=== PATIENT | female | born 1960 | race Caucasian/White ===

== ENCOUNTER 2016-07-10 17:14 | Inpatient (IN) | payer BC, OTHER ==
[~2016-07-10] VITALS: Ht 167.6 cm; Wt 84.0 kg
[~2016-07-10 17:14] MED LIST: ASPI-999 PO; CIPR500T4 PO; FAMO-119 PO; KETO10TA PO; LISI10TA2 PO; MONT10TA24 PO; NITR-65 PO; OMEG500C3 PO; ONDA8TAB13 PO; OXYC-471 PO; PHEN-640 PO; PRAV40TA2 PO; PRD20T PO; SIMV40TA4 PO; TAMS0.4C98 PO
[2016-07-10] MEDS ORDERED: morphine INJ 10 MG/ML 1ML (SYR OR VIAL) IVP STA (17:29)
[2016-07-10] MEDS ORDERED: VANCOMYCIN INJECTION 1,000 MG in NS (IVPB) 250 ML IV ONE (17:30)
[2016-07-10] MEDS ORDERED: KETOROLAC 30 MG/ML VIAL IVP STA (17:38)
[2016-07-10] MEDS ORDERED: ONDANSETRON 4 MG/2 ML (SDV) Z0FRAN IVP ONE (17:45)
[2016-07-10] MEDS ORDERED: NS IV 1000 ML 2,500 ML IV PRN (17:45)
[2016-07-10 17:46] LABS: BASOPHILS # (AUTO) 0.1 10^3/uL (0.0-0.1); BASOPHILS % (AUTO) 1 % (0-10); EOSINOPHILS # (AUTO) 0.1 10^3/uL (0.0-0.3); EOSINOPHILS % (AUTO) 1 % (0-10); LYMPHOCYTES # (AUTO) 1.3 X 10^3 (1.0-4.0); LYMPHOCYTES % (AUTO) 12 % (12-44); MEAN CORPUSCULAR HEMOGLOBIN 31 PG (25-34); MEAN CORPUSCULAR HGB CONC 34 G/DL (32-36); MEAN CORPUSCULAR VOLUME 91 FL (80-99); MEAN PLATELET VOLUME 10.3 FL (7.4-10.4); MONOCYTES # (AUTO) 1.1 X 10^3 (0.0-1.0); MONOCYTES % (AUTO) 10 % (0-12); NEUTROPHILS # (AUTO) 8.5 X 10^3 (1.8-7.8); NEUTROPHILS % (AUTO) 77 % (42-75); PLATELET COUNT 225 10^3/uL (130-400); RED BLOOD COUNT 4.02 10^6/uL (4.35-5.85); RED CELL DISTRIBUTION WIDTH 12.5 % (10.0-14.5)
[2016-07-10 17:59] LABS: INR 1.1 (0.8-1.4); PROTHROMBIN TIME PATIENT 13.4 SEC (12.2-14.7)
[2016-07-10 18:16] LABS: ALBUMIN 3.9 G/DL (3.2-4.5); BILIRUBIN,TOTAL 0.9 MG/DL (0.1-1.0); CALCIUM 9.2 MG/DL (8.5-10.1); CREATININE SERUM 0.97 MG/DL (0.60-1.30); POTASSIUM 3.6 MMOL/L (3.6-5.0)
--- NOTE | 2016-07-10 18:25 | Diagnostic Imaging Report ---
CLINICAL INDICATION: Patient denies any chest pain but has fevers. EXAM: Portable chest x-ray upright view. COMPARISONS: Chest x-ray dated 07/10/2015. FINDINGS: Lungs/pleura: Lungs are clear. There is no pneumothorax. There is no pleural effusion. Mediastinum: Unremarkable. Pulmonary vasculature: Unremarkable. Heart: Unremarkable. Bones/extrathoracic soft tissue: Unremarkable. IMPRESSION: There is no radiographic evidence of acute cardiopulmonary process. Dictated by: Dictated on workstation # [id number]
[2016-07-10] MEDS ORDERED: LIDOCAINE 2% 20 ML (XYLOCAINE) VIAL INJ ONE (18:45)
--- NOTE | 2016-07-10 18:56 | Diagnostic Imaging Report ---
Clinical indication: Patient complains of left knee pain and swelling. Onset Tuesday. No history of trauma or injury. Patient was given medicine for gout but states it is not helping and has since developed a fever. Exam: X-ray of the left knee, 3 views. Comparison: None. Findings: There is no evidence of acute fracture or dislocation. There is suspected moderate left knee effusion. There is a 4 mm calcification posterior to the left knee which may represent a loose body. There is a moderately hypertrophic patellar spur at the quadriceps attachment. There is mild to moderate spurring involving the patellofemoral compartment. Impression: 1: Moderate left knee effusion. 2: Evaluation for gout or other infectious or inflammatory process is suggested. 3: Degenerative disease of the left knee predominantly involving the patellofemoral compartment. 4: Possible small loose body seen posterior to the knee. Dictated by: Dictated on workstation # [id number]
[2016-07-10 20:07] LABS: BILIRUBIN,URINE NEGATIVE (NEGATIVE); KETONES,URINE NEGATIVE (NEGATIVE); LEUKOCYTE ESTERASE ,URINE 1+ (NEGATIVE); NITRITE,URINE NEGATIVE (NEGATIVE); PH,URINE 6 (5-9); PROTEIN,URINE NEGATIVE (NEGATIVE); UROBILINOGEN,URINE NORMAL (NORMAL)
[2016-07-10 20:24] LABS: WBC,URINE 0-2 /HPF
--- NOTE | 2016-07-10 20:51 | ED General ---
General Chief Complaint: Fever-Adult/Adol Stated Complaint: L KNEE PAIN Nursing Triage Note: PT REPORTS L KNEE PAIN AND SWELLING SINCE . PT WAS GIVEN MEDICATION FOR GOUT, BUT HAS NOT HAD IMPROVEMENT AND HAS SINCE DEVELOPED FEVER AND MALAISE. Nursing Sepsis Screen: No Definite Risk Source of Information: Patient, Spouse Exam Limitations: No Limitations History of Present Illness Time Seen by Provider: 17:20 Initial Comments 55 yo female patient presents to the ED with c/o left knee pain and swelling with onset last Tuesday. Patient was given colchicine yesterday w/o improvement in symptoms. Also reports using naprosyn w/o improvement. Patient denies fever, nausea, vomiting. Reports generalized malaise today. Denies a h/ o gout. upon admit to the ED patient was noted to have a temp of 103 degrees[address] Injury Occurred: denies known injury Timing/Duration: 2-3 Days, Getting Worse Severity: Severe Modifying Factors: improves with Immobilization, worse with Medication, worse with Movement Allergies and Home Medications Allergies Coded Allergies: red dye (Unverified Allergy, Unknown, hives, 02/19/15) RED DYE #40 Home Medications Aspirin 81 Mg Tab.chew, 81 MG PO DAILY@0900, #30 Prescribed by: YESSY BELL on 07/11/15 0854 Famotidine 20 Mg Tablet, 20 MG PO DAILY, #30 Prescribed by: YESSY BELL on 07/11/15 0909 Lisinopril 10 Mg Tablet, 10 MG PO DAILY, #30 Prescribed by: YESSY BELL on 07/11/15 0854 Montelukast Sodium 10 Mg Tablet, 10 MG PO DAILY PRN for ALLERGIES, (Reported) [place]-3 Fatty Acids 500 Mg Capsule, 500 MG PO BID, #100 Ref 1 Prescribed by: ISADORA REBOLLAR on 07/11/15 0943 Pravastatin Sodium 40 Mg Tablet, 40 MG PO DAILY, #30 Prescribed by: YESSY BELL on 07/11/15 0909 Constitutional: see HPI, chills, fever, malaise EENTM: no symptoms reported Respiratory: No cough, No short of breath Cardiovascular: No chest pain, No palpitations, No syncope Gastrointestinal: No abdominal pain, No diarrhea, No nausea, No vomiting Genitourinary: no symptoms reported Musculoskeletal: see HPI, joint pain, joint swelling Skin: see HPI, change in color Psychiatric/Neurological: No Symptoms Reported All Other Systems Reviewed Negative Unless Noted: Yes (Negative excepted noted.) Past Mvxdufv-Oeizkt-Wobofv Hx Patient Social History Alcohol Use: Denies Use Recreational Drug Use: No Smoking Status: Never a Smoker 2nd Hand Smoke Exposure: No Recent Foreign Travel: No Contact w/Someone Who Travel: No Recent Infectious Disease Expo: No Recent Hopitalizations: No Immunizations Up To Date Tetanus Booster (TDap): Less than 5yrs PED Vaccines UTD: No Date of Influenza Vaccine: July 10, 2015 Seasonal Allergies Seasonal Allergies: No Surgeries HX Surgeries: Yes Surgeries: Hysterectomy Respiratory Hx Respiratory Disorders: No Cardiovascular Hx Cardiac Disorders: No Neurological Hx Neurological Disorders: No 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 System Hx 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 Disorders: No Sexually Transmitted Disease: No HIV/AIDS: No Female 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 Disorders: 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 Genitourinary Hx Genitourinary Disorders: Yes (FIRST KIDNEY STONE 02/19/15) Genitourinary Disorders: Kidney Stones Gastrointestinal Hx Gastrointestinal Disorders: No Musculoskeletal Hx Musculoskeletal Disorders: No Endocrine Hx Endocrine Disorders: No HEENT HX ENT Disorders: No Cancer Hx Cancer: No Psychosocial Hx Psychiatric Problems: No Integumentary HX Skin/Integumentary Disorder: Yes (ALOPECIA) Blood Transfusions Hx Blood Disorders: No Adverse Reaction to a Blood Tr: No Reviewed Nursing Assessment Reviewed/Agree w Nursing PMH: Yes Family Medical History Significant Family History: No Pertinent Family Hx Family Medial History: Patient reports no known family medical history. Physical Exam Vital Signs Vital Sign - Last 12Hours 07/10/16 07/10/16 17:20 19:13 Temp 103.0 Pulse 115 Resp 20 B/P (MAP) 123/63 Pulse Ox 96 O2 Delivery Room Air Capillary Refill : Less Than 3 Seconds General Appearance: No Apparent Distress, WD/WN HEENT: PERRL/EOMI, Pharynx Normal Neck: Normal Inspection, Supple Respiratory: Lungs Clear, Normal Breath Sounds, No Respiratory Distress Cardiovascular: Regular Rate, Rhythm, No Edema, No Murmur, Normal Peripheral Pulses Gastrointestinal: Normal Bowel Sounds, Non Tender, Soft, No Distended Back: Normal Inspection Extremity: Normal Capillary Refill, No Calf Tenderness, No Pedal Edema, Other ( left knee shows erythema, warmth, generalized tenderness, and swelling. Left knee ROM 0 degrees to 35 degrees flexion. Moderate to severe pain with passive and active ROM.) Neurologic/Psychiatric: Alert, Oriented x3, No Motor/Sensory Deficits, Normal Mood/Affect Skin: Normal Color, Warm/Dry, Other (left knee shows erythema, warmth, generalized tenderness, and swelling.) Focused Exam Lactic Acid Level Additional Procedures : Additional Procedures: Arthrocentesis Aspirating Progress 1:1 mixture of 2% lidocaine and 0.5% marcaine used to anesthetize the medial border of the left patella. A 16 g needle was used to aspirate 12 cc of bloody synovial fluid. synovial fluid sent to the lab for testing. Blood loss minimal. Patient tolerated the procedure well. Progress/Results/Core Measures Results/Orders Lab Results Laboratory Tests Test 07/10/16 17:35 07/10/16 19:05 07/10/16 19:59 Range/Units White Blood Count 11.0 4.3-11.0 10^3/uL Red Blood Count 4.02 L 4.35-5.85 10^6/uL Hemoglobin 12.5 11.5-16.0 G/DL Hematocrit 37 35-52 % Mean Corpuscular Volume 91 80-99 FL Mean Corpuscular Hemoglobin 31 25-34 PG Mean Corpuscular Hemoglobin Concent 34 32-36 G/DL Red Cell Distribution Width 12.5 10.0-14.5 % Platelet Count 225 130-400 10^3/uL Mean Platelet Volume 10.3 7.4-10.4 FL Neutrophils (%) (Auto) 77 H 42-75 % Lymphocytes (%) (Auto) 12 12-44 % Monocytes (%) (Auto) 10 0-12 % Eosinophils (%) (Auto) 1 0-10 % Basophils (%) (Auto) 1 0-10 % Neutrophils # (Auto) 8.5 H 1.8-7.8 X 10^3 Lymphocytes # (Auto) 1.3 1.0-4.0 X 10^3 Monocytes # (Auto) 1.1 H 0.0-1.0 X 10^3 Eosinophils # (Auto) 0.1 0.0-0.3 10^3/uL Basophils # (Auto) 0.1 0.0-0.1 10^3/uL Erythrocyte Sedimentation Rate 66 H 0-30 MM/HR Prothrombin Time 13.4 12.2-14.7 SEC INR Comment 1.1 0.8-1.4 Activated Partial Thromboplast Time 32 24-35 SEC Sodium Level 141 135-145 MMOL/L Potassium Level 3.6 3.6-5.0 MMOL/L Chloride Level 109 H 98-107 MMOL/L Carbon Dioxide Level 22 21-32 MMOL/L Anion Gap 10 5-14 MMOL/L Blood Urea Nitrogen 14 7-18 MG/DL Creatinine 0.97 0.60-1.30 MG/DL Estimat Glomerular Filtration Rate 60 BUN/Creatinine Ratio 14 Glucose Level 109 H 70-105 MG/DL Lactic Acid Level 0.70 0.50-2.00 MMOL/L Uric Acid 3.0 2.6-7.2 MG/DL Calcium Level 9.2 8.5-10.1 MG/DL Total Bilirubin 0.9 0.1-1.0 MG/DL Aspartate Amino Transf (AST/SGOT) 25 5-34 U/L Alanine Aminotransferase (ALT/SGPT) 28 0-55 U/L Alkaline Phosphatase 66 40-136 U/L C-Reactive Protein High Sensitivity 17.27 H 0.00-0.50 MG/DL Total Protein 7.0 6.4-8.2 G/DL Albumin 3.9 3.2-4.5 G/DL Body Fluid Source SYNOVIAL Body Fluid Color RED Body Fluid Appearance MKD BLDY Body Fluid WBC 3750 /uL Body Fluid RBC 93563 /uL Body Fluid Polynuclear WBCs 85 % Body Fluid Mononuclear WBCs 0 % Body Fluid Lymphocytes 15 % Body Fluid Other Cells 0 % Body Fluid Crystals NOT SEEN Urine Color YELLOW Urine Clarity CLEAR Urine pH 6 5-9 Urine Specific [place] 1.020 1.016-1.022 Urine Protein NEGATIVE NEGATIVE Urine Glucose (UA) NEGATIVE NEGATIVE Urine Ketones NEGATIVE NEGATIVE Urine Nitrite NEGATIVE NEGATIVE Urine Bilirubin NEGATIVE NEGATIVE Urine Urobilinogen NORMAL NORMAL MG/DL Urine Leukocyte Esterase 1+ H NEGATIVE Urine RBC (Auto) NEGATIVE NEGATIVE Urine RBC NONE /HPF Urine WBC 0-2 /HPF Urine Squamous Epithelial Cells 5-10 /HPF Urine Crystals NONE /LPF Urine Bacteria TRACE /HPF Urine Casts NONE /LPF Urine Mucus NEGATIVE /LPF Urine Culture Indicated NO My Orders Orders - CAROL ANN GOODSON Cbc With Automated Diff (07/10/16 17:29) Comprehensive Metabolic Panel (07/10/16 17:29) Lactic Acid Analyzer (07/10/16 17:29) Blood Culture (07/10/16:29) Sputum Culture (07/10/16 17:29) Ua Culture If Indicated (07/10/16:29) Protime With Inr (07/10/16:) Partial Thromboplastin Time (07/10/16:29) Chest 1 View, Ap/Pa Only (07/10/16:29) Saline Lock/Iv-Start (07/10/16:29) Saline Lock/Iv-Start (07/10/16:29) Ekg Tracing (07/10/16:) Vital Signs Adult Sepsis Patie Q1HR (07/10/16:29) Vancomycin Injection (Vancomycin Injecti (07/10/16 17:30) Remove Rings In Anticipation O (07/10/16:29) Morphine Injection (Morphine Injection (07/10/16 17:29) Ns Iv 1000 Ml (Sodium Chloride 0.9%) (07/10/16 17:45) Ketorolac Injection (Toradol Injection) (07/10/16 17:38) Ondansetron Injection (Zofran Injectio (07/10/16 17:45) Hs C Reactive Protein (07/10/16 17:47) Erythrocyte Sedimentation Rate (07/10/16 17:47) Knee, Left, 3 Views (07/10/16 18:20) Lidocaine 2% Injection 20 Ml (Xylocaine (07/10/16 18:45) Body Fluid Cell Count (07/10/16 19:17) Body Fluid Culture (07/10/16 19:17) Crystals,Body Fluid (07/10/16 19:17) Uric Acid (07/10/16 20:13) Medications Given in ED Current Medications Medications Dose Ordered Sig/Eusebio Route Start Time Stop Time Status Last Admin Dose Admin Lidocaine HCl 20 ml ONCE ONCE INJ 07/10/16 18:45 07/10/16 18:46 DC 07/10/16 18:56 5 ML Ondansetron HCl 4 mg ONCE ONCE IVP 07/10/16 17:45 07/10/16 17:46 DC 07/10/16 18:09 4 MG Sodium Chloride 2,500 ml @ 1,250 mls/hr PRN PRN IV 07/10/16 17:45 5/13/17 21:57 DC 07/10/16 18:10 1,250 MLS/HR Vancomycin HCl 1000 mg/Sodium Chloride 250 ml @ 250 mls/hr ONCE ONCE IV 07/10/16 17:30 07/10/16 18:29 DC 07/10/16 18:09 250 MLS/HR Vital Signs/I&O Vital Sign - Last 12Hours 07/10/16 07/10/16 07/10/16 07/10/16 17:20 19:13 21:36 22:00 Temp 103.0 100.4 100.4 97.2 Pulse 115 96 96 87 Resp 20 18 18 18 B/P (MAP) 123/63 137/72 Pulse Ox 96 96 96 96 O2 Delivery Room Air Room Air 07/11/16 00:00 Temp 97.7 Pulse 91 Resp 8 B/P (MAP) 110/58 Pulse Ox 95 Intake and Output 07/11/16 00:00 Intake Total 3250 ml Balance 3250 ml Blood Pressure Mean: 83 Diagnostic Imaging Diagonstic Imaging: Xray Plain Films/CT/US/NM/MRI: chest Comments FINDINGS: Lungs/pleura: Lungs are clear. There is no pneumothorax. There is no pleural effusion. Mediastinum: Unremarkable. Pulmonary vasculature: Unremarkable. Heart: Unremarkable. Bones/extrathoracic soft tissue: Unremarkable. IMPRESSION: There is no radiographic evidence of acute cardiopulmonary process. Dictated by: Dictated on workstation # [id number] Reviewed: Reviewed by Me (radiology report reviewed by me) Diagonstic Imaging: Xray Plain Films/CT/US/NM/MRI: knee Comments Findings: There is no evidence of acute fracture or dislocation. There is suspected moderate left knee effusion. There is a 4 mm calcification posterior to the left knee which may represent a loose body. There is a moderately hypertrophic patellar spur at the quadriceps attachment. There is mild to moderate spurring involving the patellofemoral compartment. Impression: 1: Moderate left knee effusion. 2: Evaluation for gout or other infectious or inflammatory process is suggested. 3: Degenerative disease of the left knee predominantly involving the patellofemoral compartment. 4: Possible small loose body seen posterior to the knee. Dictated on workstation # [id number] Reviewed: Reviewed by Me (radiology report reviewed by me) Departure Communication Time/Spoke to Admitting Phy: 18:[address] Orender graciously accepts patient to her medical service for IV antibiotics , IV hydration, and pain control. Time/Spoke to Consulting Physi: 18:52 Communication/Consulting Dr. Ruiz notified of consult. Impression Impression: Primary Impression: Sepsis Qualified Codes: A41.9 - Sepsis, unspecified organism Additional Impressions: Left knee pain Qualified Codes: M25.562 - Pain in left knee Effusion, left knee Disposition: 09 ADMITTED INPATIENT Condition: Stable Decision to Admit Reason: Admit from ER (General) Decision to Admit/Date: July 10, 2016 Time/Decision to Admit Time: 18:45 Departure-Patient Inst. Referrals: YESSY BELL DO (PCP/Family) Primary Care Physician CAROL ANN GOODSON July 10, 2016 20:51
[2016-07-10] MEDS ORDERED: NS W/KCL 20 MEQ/L 1,000 ML IV ONE (21:45)
[2016-07-10] MEDS ORDERED: LEVOFLOXACIN 750 MG/150 ML IV 150 ML IV ONE (21:51)
[2016-07-10 22:00] VITALS: BP 137/72
[2016-07-10] MEDS ORDERED: NS W/KCL 20 MEQ/L 1,000 ML IV SCH (22:00)
[2016-07-10] MEDS: LEVOFLOXACIN 750 MG/D5W 150 ML PRE-MIX IV SCH (22:10)
[2016-07-10] MEDS ORDERED: ONDANSETRON 4 MG/2 ML (SDV) Z0FRAN IV PRN (22:15)
[2016-07-10] MEDS ORDERED: ACETAMINOPHEN 325 MG TABLET/CAPLET (TYLENOL) PO PRN (22:15)
[2016-07-10] MEDS ORDERED: HYDROcodone/APAP 5 MG/325 MG (LORTAB) TAB PO PRN (22:15)
[2016-07-10] MEDS ORDERED: morphine INJ 4 MG/ML 1 ML (VIAL/SYRINGE) IV PRN (22:15)
[2016-07-10] MEDS: KETOROLAC 30 MG/ML VIAL IV SCH (23:57)
[2016-07-11] VITALS: BP 110/58
[2016-07-11 04:00] VITALS: BP 120/59
[2016-07-11 04:45] LABS: BASOPHILS % (AUTO) 0 % (0-10); EOSINOPHILS # (AUTO) 0.1 10^3/uL (0.0-0.3); EOSINOPHILS % (AUTO) 1 % (0-10); LYMPHOCYTES # (AUTO) 1.3 X 10^3 (1.0-4.0); LYMPHOCYTES % (AUTO) 16 % (12-44); MEAN CORPUSCULAR HEMOGLOBIN 31 PG (25-34); MEAN CORPUSCULAR HGB CONC 34 G/DL (32-36); MEAN CORPUSCULAR VOLUME 92 FL (80-99); MEAN PLATELET VOLUME 10.2 FL (7.4-10.4); MONOCYTES # (AUTO) 0.9 X 10^3 (0.0-1.0); MONOCYTES % (AUTO) 11 % (0-12); NEUTROPHILS # (AUTO) 5.8 X 10^3 (1.8-7.8); NEUTROPHILS % (AUTO) 72 % (42-75); PLATELET COUNT 150 10^3/uL (130-400); RED CELL DISTRIBUTION WIDTH 12.5 % (10.0-14.5); WHITE BLOOD COUNT 8.1 10^3/uL (4.3-11.0)
[2016-07-11] MEDS ORDERED: FUROSEMIDE 40 MG/4 ML INJ (LASIX) IVP ONE (04:45)
[2016-07-11] MEDS ORDERED: KCL 20 MEQ TAB (K-DUR) PO ONE ×2 (04:45→10:15)
[2016-07-11 05:03] LABS: ERYTHROCYTE SEDIMENTATION RATE 64 MM/HR (0-30)
[2016-07-11 05:34] LABS: ALANINE AMINOTRANSFERASE 21 U/L (0-55); ALBUMIN 3.1 G/DL (3.2-4.5); ANION GAP 6 MMOL/L (5-14); ASPARTATE AMINO TRANSFERASE 18 U/L (5-34); BILIRUBIN,TOTAL 0.7 MG/DL (0.1-1.0); BLOOD UREA NITROGEN 13 MG/DL (7-18); BUN/CREATININE RATIO 17; CALCIUM 7.8 MG/DL (8.5-10.1); CARBON DIOXIDE 20 MMOL/L (21-32); CHLORIDE 115 MMOL/L (98-107); CREATININE SERUM 0.76 MG/DL (0.60-1.30); GFR ESTIMATED > 60; GLUCOSE 85 MG/DL (70-105); POTASSIUM 4.1 MMOL/L (3.6-5.0); SODIUM 141 MMOL/L (135-145); TOTAL PROTEIN 5.6 G/DL (6.4-8.2); hs C REACTIVE PROTEIN 15.71 MG/DL (0.00-0.50)
[2016-07-11] MEDS: KETOROLAC 30 MG/ML VIAL IV SCH ×3 (05:55→17:45)
[2016-07-11 08:00] VITALS: BP 123/63
[2016-07-11] MEDS: FAMOTIDINE 20 MG (PEPCID) TABLET PO SCH ×2 (08:30→20:05)
[2016-07-11] MEDS: VANCOMYCIN 1250 MG/NS 250 ML IVPB IV SCH ×4 (08:30→20:05)
--- NOTE | 2016-07-11 09:46 | Progress Note-Standard ---
Standard Progress Note Progress Notes/Assess & Plan Progress/Assessment & Plan reports knee remains stiff and painful Gram stain neg for WBC and bacteria cultures pending L knee with mild warmth, no increased effusion, no erythema active ROM 0//85 IMP--inflammatory flare uncertain etiology. No objective findings for I and D currently will continue to follow CIRO NUNEZ MD July 11, 2016 09:46
[2016-07-11] MEDS ORDERED: FUROSEMIDE 40 MG (LASIX) TAB PO ONE (10:15)
--- NOTE | 2016-07-11 10:24 | History & Physicial ---
History of Present Illness History of Present Illness Reason for visit/HPI This is a 55 year old female who presented to the emergency room with a 4 day history of left knee swelling and pain. She had been using naprosyn and had started colchicine the day prior but the left knee swelling and pain were worsening so she presented to the emergency room for evaluation. Upon examination in the emergency room she was found to be febrile with a temperature of 103. Her left knee was red, swollen, and tender to touch with decreased range of motion due to the pain. She underwent drainage of serosanguinous fluid from the left knee in the emergency room and no WBCs or bacteria were found in the aspirate from her knee. Her uric acid and WBC count were normal but her CRP was elevated. It was decided to admit her for orthopedic consult, IV toradol, pain control, and further evaluation. Date of Admission July 10, 2016 at 21:00 I consulted on this patient on 07/11/16 10:19 Attending Physician Vdiya Montes DO Admitting Physician Vidya Montes DO Consult Allergies and Home Medications Allergies Coded Allergies: red dye (Unverified Allergy, Unknown, hives, 02/19/15) RED DYE #40 Home Medications Aspirin 81 Mg Tab.chew, 81 MG PO DAILY@0900, #30 Prescribed by: VIDYA MONTES on 07/11/15 0854 Famotidine 20 Mg Tablet, 20 MG PO DAILY, #30 Prescribed by: VIDYA MONTES on 07/11/15 0909 Lisinopril 10 Mg Tablet, 10 MG PO DAILY, #30 Prescribed by: VIDYA MONTES on 07/11/15 0854 Montelukast Sodium 10 Mg Tablet, 10 MG PO DAILY PRN for ALLERGIES, (Reported) [place]-3 Fatty Acids 500 Mg Capsule, 500 MG PO BID, #100 Ref 1 Prescribed by: ISADORA REBOLLAR on 07/11/15 0943 Pravastatin Sodium 40 Mg Tablet, 40 MG PO DAILY, #30 Prescribed by: VIDYA MONTES on 07/11/15 0909 Past Ucqpofm-Xxsnyr-Gjnawr Hx Patient Social History Alcohol Use: Denies Use Recreational Drug Use: No Smoking Status: Never a Smoker 2nd Hand Smoke Exposure: No Physical Abuse Screen: No Sexual Abuse: No Recent Foreign Travel: No Contact w/other who traveled: No Recent Hopitalizations: No Recent Infectious Disease Expo: No Immunizations Up To Date Tetanus Booster (TDap): Less than 5yrs Date of Influenza Vaccine: July 10, 2015 Seasonal Allergies Seasonal Allergies: No Surgeries HX Surgeries: Yes Surgeries: Hysterectomy Respiratory Hx Respiratory Disorders: No Cardiovascular Hx Cardiovascular Disorders: No Neurological Hx Neurological Disorders: No 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 System Hx 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 Disorders: No Sexually Transmitted Disease: No HIV/AIDS: No Female 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 Disorders: Denies Genitourinary Hx Genitourinary Disorders: Yes (FIRST KIDNEY STONE 02/19/15) Genitourinary Disorders: Kidney Stones Gastrointestinal Hx Gastrointestinal Disorders: No Musculoskeletal Hx Musculoskeletal Disorders: No Endocrine Hx Endocrine Disorders: No HEENT HX ENT Disorders: No Cancer Hx Cancer: No Psychosocial Hx Psychiatric Problems: No Integumentary HX Skin/Integumentary Disorder: Yes (ALOPECIA) Blood Transfusions Hx Blood Disorders: No Adverse Reaction to a Blood Tr: No Reviewed Nursing Assessment Reviewed/Agree w Nursing PMH: Yes Family Medical History Significant Family History: No Pertinent Family Hx Family Hx: Patient reports no known family medical history. Constitutional: fever EENTM: No blurred vision, No dental problems, No double vision, No ear discharge, No ear pain, No epistaxis, No eye pain, No hearing loss, No hoarseness, No mouth pain, No mouth swelling, No no symptoms reported, No nose congestion, No nose pain, No other, No see HPI, No tearing, No throat pain, No throat swelling, No vision loss Respiratory: No no symptoms reported, No see HPI, No cough, No dyspnea on exertion, No hemoptysis, No orthopnea, No phlegm, No short of breath, No stridor , No wheezing, No other Cardiovascular: No no symptoms reported, No see HPI, No chest pain, No edema, No Hx of Intervention, No palpitations, No syncope, No vascular heart diseas, No other Gastrointestinal: No RUQ, No LUQ, No RLQ, No LLQ, No no symptoms reported, No see HPI, No abdominal pain, No constipation, No diarrhea, No dysphagia, No hematemesis, No heartburn, No jaundice, No loss of appetite, No melena, No nausea, No vomiting, No other Genitourinary: No no symptoms reported, No see HPI, No decreased output, No discharge, No dysuria, No frequency, No hematuria, No hesitancy, No incontinence , No nocturia, No pain, No other Musculoskeletal: joint pain (left knee), joint swelling (left knee) Skin: change in color (vitiligo and alopecia) Psychiatric/Neurological: Denies No Symptoms Reported, Denies See HPI, Denies Anxiety, Denies Depressed, Denies Emotional Problems, Denies Headache, Denies Numbness, Denies Paresthesia, Denies Pre-Existing Deficit, Denies Seizure, Denies Tingling, Denies Tremors, Denies Weakness, Denies Other Physical Exam Vital Signs Vital Sign - Last 12Hours 07/10/16 07/10/16 17:20 19:13 Temp 103.0 Pulse 115 Resp 20 B/P (MAP) 123/63 Pulse Ox 96 O2 Delivery Room Air Capillary Refill : Less Than 3 Seconds General Appearance: No Apparent Distress HEENT: Pharynx Normal Neck: Supple Respiratory: Lungs Clear Cardiovascular: Regular Rate, Rhythm Gastrointestinal: Normal Bowel Sounds, Non Tender, Soft Rectal: Deferred Back: No CVA Tenderness Extremity: Non Tender, No Calf Tenderness, No Pedal Edema, Swelling (with pain with ROM and palpation to left knee but no erythema and no increased warmth) Neurologic/Psychiatric: Alert, Oriented x3 Skin: Other (vitiligo) Comments Bad table Assessment/Plan Assessment and Plan 1. Left Knee Pain and Swelling--no evidence of septic joint so etiologies include viral arthritis, pseudogout, new onset of inflammatory arthritis--will continue toradol and morphine for pain control, will check CRP, JUDY, RA, ASO in AM 2. Edema--IVF heplocked, repeat lasix with potassium today 3. Hypertension--stable Problems: Clinical Quality Measures DVT/VTE Risk/Contraindication: Risk Factor Score Per Nursin RFS Level Per Nursing on Admit: 4+=Very High VIDYA MONTES DO July 11, 2016 10:24
[2016-07-11 12:00] VITALS: BP 119/65
[2016-07-11 16:00] VITALS: BP 132/64
[2016-07-11] MEDS ORDERED: VANCOMYCIN 1 GM/NS 250 ML IVPB IV SCH ×2 (17:00)
[2016-07-11] MEDS: LEVOFLOXACIN 750 MG/D5W 150 ML PRE-MIX IV SCH (21:58)
[2016-07-12] VITALS: BP 128/86
[2016-07-12] MEDS: KETOROLAC 30 MG/ML VIAL IV SCH ×5 (00:06→23:37)
[2016-07-12 04:00] VITALS: BP 144/87
[2016-07-12 05:50] LABS: BASOPHILS % (AUTO) 1 % (0-10); EOSINOPHILS # (AUTO) 0.2 10^3/uL (0.0-0.3); EOSINOPHILS % (AUTO) 3 % (0-10); LYMPHOCYTES # (AUTO) 1.1 X 10^3 (1.0-4.0); LYMPHOCYTES % (AUTO) 14 % (12-44); MEAN CORPUSCULAR HEMOGLOBIN 31 PG (25-34); MEAN CORPUSCULAR HGB CONC 34 G/DL (32-36); MEAN CORPUSCULAR VOLUME 91 FL (80-99); MEAN PLATELET VOLUME 10.3 FL (7.4-10.4); MONOCYTES # (AUTO) 0.6 X 10^3 (0.0-1.0); MONOCYTES % (AUTO) 7 % (0-12); NEUTROPHILS # (AUTO) 5.7 X 10^3 (1.8-7.8); NEUTROPHILS % (AUTO) 75 % (42-75); PLATELET COUNT 186 10^3/uL (130-400); RED BLOOD COUNT 3.96 10^6/uL (4.35-5.85); RED CELL DISTRIBUTION WIDTH 12.5 % (10.0-14.5); WHITE BLOOD COUNT 7.6 10^3/uL (4.3-11.0)
[2016-07-12 06:14] LABS: ALBUMIN 3.6 G/DL (3.2-4.5); BILIRUBIN,TOTAL 0.7 MG/DL (0.1-1.0); CALCIUM 9.1 MG/DL (8.5-10.1); CREATININE SERUM 0.98 MG/DL (0.60-1.30); TOTAL PROTEIN 6.7 G/DL (6.4-8.2)
[2016-07-12 06:15] LABS: hs C REACTIVE PROTEIN 16.04 MG/DL (0.00-0.50)
--- NOTE | 2016-07-12 07:19 | CONSULTATION REPORT ---
DATE OF SERVICE: 07/10/2016 REASON FOR CONSULTATION: Left knee pain and swelling. HISTORY: The patient is a 55-year-old female who has had increasing left knee pain and swelling since around Tuesday. She was started on Colchicine last evening, but had no improvement and presented to the ER this evening. There was concern for septic arthritis. She denies any penetrating trauma. She denies any recent surgeries. She records no recent injections. She is not diabetic. She has no history of inflammatory arthritis, but has reported problems with her fingers at times and she reported not feeling fevers at home, but on admission to the emergency department was found to have temperature of 103 degrees with some slight tachycardia. An aspiration was obtained which revealed only 3750 white blood cells. The gram stain is pending. No crystals were seen. The patient reports no history of gout. Her white count was normal though she did have an elevated sed rate of 66 and an elevated C-reactive protein of 17.27. On my examination, the left knee demonstrates a moderate effusion. There is currently no erythema or warmth. The patient has received vancomycin. Her arc of motion currently is approximately 60 degrees actively. She has no joint line tenderness. Radiographs reveal no acute changes. IMPRESSION: Left knee pain with associated effusion, uncertain etiology. This could be the initial presentation of inflammatory arthritis. Would consider an inflammatory panel workup. In addition, pseudogout can present in a similar fashion. I would not recommend operative intervention currently as her aspirate is not consistent at all with septic arthritis. We will follow her gram stains and cultures closely. Thank you for the consultation. Job ID: [id number] DocumentID: [id number] Dictated Date: 07/10/2016 21:33:24 Building Stonecutter Date: 07/12/2016 07:17:59 Dictated By: CIRO NUNEZ MD
--- NOTE | 2016-07-12 07:33 | Progress Note-Standard ---
Standard Progress Note Progress Notes/Assess & Plan Progress/Assessment & Plan reports knee remains stiff and painful Gram stain neg for WBC and bacteria cultures pending L knee with mild warmth, no increased effusion, no erythema active ROM IMP--inflammatory flare uncertain etiology. No objective findings for I and D currently will continue to follow Final Diagnosis Patient feeling much better. Ambulating independently Vital Signs Date Time Temp Pulse Resp B/P (MAP) Pulse Ox O2 Delivery O2 Flow Rate FiO2 07/12/16 04:00 99.5 94 18 144/87 98 07/12/16 00:44 98.3 07/12/16 00:00 100.2 89 18 128/86 97 07/11/16 16:00 99.6 81 20 132/64 92 07/11/16 12:00 99.2 85 20 119/65 95 07/11/16 08:00 98.0 82 20 123/63 96 I & O 07/12/16 07:00 Intake Total 3115.0 ml Output Total 3600 ml Balance -485.0 ml Laboratory Tests Test 07/12/16 05:40 Range/Units White Blood Count 7.6 4.3-11.0 10^3/uL Red Blood Count 3.96 L 4.35-5.85 10^6/uL Hemoglobin 12.1 11.5-16.0 G/DL Hematocrit 36 35-52 % Mean Corpuscular Volume 91 80-99 FL Mean Corpuscular Hemoglobin 31 25-34 PG Mean Corpuscular Hemoglobin Concent 34 32-36 G/DL Red Cell Distribution Width 12.5 10.0-14.5 % Platelet Count 186 130-400 10^3/uL Mean Platelet Volume 10.3 7.4-10.4 FL Neutrophils (%) (Auto) 75 42-75 % Lymphocytes (%) (Auto) 14 12-44 % Monocytes (%) (Auto) 7 0-12 % Eosinophils (%) (Auto) 3 0-10 % Basophils (%) (Auto) 1 0-10 % Neutrophils # (Auto) 5.7 1.8-7.8 X 10^3 Lymphocytes # (Auto) 1.1 1.0-4.0 X 10^3 Monocytes # (Auto) 0.6 0.0-1.0 X 10^3 Eosinophils # (Auto) 0.2 0.0-0.3 10^3/uL Basophils # (Auto) 0.0 0.0-0.1 10^3/uL Sodium Level 142 135-145 MMOL/L Potassium Level 4.0 3.6-5.0 MMOL/L Chloride Level 110 H 98-107 MMOL/L Carbon Dioxide Level 23 21-32 MMOL/L Anion Gap 9 5-14 MMOL/L Blood Urea Nitrogen 13 7-18 MG/DL Creatinine 0.98 0.60-1.30 MG/DL Estimat Glomerular Filtration Rate 59 BUN/Creatinine Ratio 13 Glucose Level 83 70-105 MG/DL Calcium Level 9.1 8.5-10.1 MG/DL Total Bilirubin 0.7 0.1-1.0 MG/DL Aspartate Amino Transf (AST/SGOT) 32 5-34 U/L Alanine Aminotransferase (ALT/SGPT) 40 0-55 U/L Alkaline Phosphatase 66 40-136 U/L C-Reactive Protein High Sensitivity 16.04 H 0.00-0.50 MG/DL Total Protein 6.7 6.4-8.2 G/DL Albumin 3.6 3.2-4.5 G/DL cultures negative thus far LLE--no warmth. mod effusion. AROM 0/3/100 improving L knee will follow cultures, but no indication for I and D currently CIRO NUNEZ MD July 12, 2016 07:33
[2016-07-12 08:00] VITALS: BP 133/88
[2016-07-12] MEDS: FAMOTIDINE 20 MG (PEPCID) TABLET PO SCH (08:32)
[2016-07-12] MEDS: VANCOMYCIN 1250 MG/NS 250 ML IVPB IV SCH ×4 (08:32→20:35)
[2016-07-12] MEDS ORDERED: FAMO-119 PO (09:39)
[2016-07-12] MEDS ORDERED: ATOR20TA66 PO (09:39)
[2016-07-12] MEDS ORDERED: ASPI-999 PO (09:39)
[2016-07-12] MEDS ORDERED: LISI10TA2 PO (09:39)
[2016-07-12 12:00] VITALS: BP 125/77
[2016-07-12] MEDS ORDERED: KCL 10 MEQ TAB (MICRO K) PO NR (12:30)
[2016-07-12] MEDS ORDERED: FUROSEMIDE 20 MG (LASIX) TAB PO NR (12:30)
--- NOTE | 2016-07-12 13:18 | Progress Note (SOAP) ---
Subjective Subjective/Events-last exam Fwup left knee swelling, pain, fever, edema, hypertension. Left knee still swollen but not as tender and is walking a little better. Lasix helped edema. Still with fever spike overnight. Objective Exam Vital Signs Date Time Temp Pulse Resp B/P (MAP) Pulse Ox O2 Delivery O2 Flow Rate FiO2 07/12/16 12:00 97.3 73 16 125/77 96 07/12/16 08:00 97.8 96 16 133/88 97 07/12/16 04:00 99.5 94 18 144/87 98 07/12/16 00:44 98.3 07/12/16 00:00 100.2 89 18 128/86 97 07/11/16 16:00 99.6 81 20 132/64 92 I & O 07/12/16 07:00 Intake Total 3115.0 ml Output Total 3600 ml Balance -485.0 ml Capillary Refill : Less Than 3 Seconds General Appearance: No Apparent Distress Neck: Supple Respiratory: Lungs Clear Cardiovascular: Regular Rate, Rhythm Gastrointestinal: normal bowel sounds, non tender, soft Extremity: Non Tender, No Calf Tenderness, No Pedal Edema, Swelling (left knee but less and no erythema--not as tender to palpation) Neurologic/Psychiatric: Alert, Oriented x3 Skin: Warm/Dry, Other (vitiligo) Results Lab Laboratory Tests 07/12/16 05:40: White Blood Count 7.6, Red Blood Count 3.96L, Hemoglobin 12.1, Hematocrit 36, Mean Corpuscular Volume 91, Mean Corpuscular Hemoglobin 31, Mean Corpuscular Hemoglobin Concent 34, Red Cell Distribution Width 12.5, Platelet Count 186, Mean Platelet Volume 10.3, Neutrophils (%) (Auto) 75, Lymphocytes (%) (Auto) 14 , Monocytes (%) (Auto) 7, Eosinophils (%) (Auto) 3, Basophils (%) (Auto) 1, Neutrophils # (Auto) 5.7, Lymphocytes # (Auto) 1.1, Monocytes # (Auto) 0.6, Eosinophils # (Auto) 0.2, Basophils # (Auto) 0.0, Sodium Level 142, Potassium Level 4.0, Chloride Level 110H, Carbon Dioxide Level 23, Anion Gap 9, Blood Urea Nitrogen 13, Creatinine 0.98, Estimat Glomerular Filtration Rate 59, BUN/ Creatinine Ratio 13, Glucose Level 83, Calcium Level 9.1, Total Bilirubin 0.7, Aspartate Amino Transf (AST/SGOT) 32, Alanine Aminotransferase (ALT/SGPT) 40, Alkaline Phosphatase 66, C-Reactive Protein High Sensitivity 16.04H, Total Protein 6.7, Albumin 3.6, Rheumatoid Factor NEGATIVE Microbiology 07/10/16 Blood Culture - Preliminary, Resulted No growth 07/10/16 Gram Stain - Final, Resulted 07/10/16 Body Fluid Culture - Preliminary, Resulted No growth Assessment/Plan Assessment/Plan Assess & Plan/Chief Complaint 1. Left knee pain and swelling--discussed etiologies again including inflamed joint from viral infection which would fit the elevated temperature as well, aspirate fluid cultures of knee negative so far, will continue toradol routinely 2. Fever--continue current meds and monitor temperature 3. Hypertension--restart home lisinopril 4. Edema--improving, repeat low dose lasix with potassium today Clinical Quality Measures DVT/VTE Risk/Contraindication: Risk Factor Score Per Nursin RFS Level Per Nursing on Admit: 4+=Very High YESSY BELL DO July 12, 2016 1:18 pm
[2016-07-12 15:53] VITALS: BP 144/82
[2016-07-12] MEDS ORDERED: TROUGH ORDER-PHARMACY XX NR (19:00)
[2016-07-12 20:05] VITALS: BP 131/72
[2016-07-12] MEDS ORDERED: ASPIRIN 81 MG CHEW (CHILDREN'S ASA) PO SCH (21:00)
[2016-07-12] MEDS ORDERED: LEVOFLOXACIN 750 MG TAB (LEVAQUIN) PO SCH (21:00)
[2016-07-12] MEDS ORDERED: lisINopril 10 MG (PRINIVIL) TAB PO SCH (21:00)
[2016-07-13 00:10] VITALS: BP 161/98
[2016-07-13 04:00] VITALS: BP 158/92
[2016-07-13] MEDS: KETOROLAC 30 MG/ML VIAL IV SCH (05:22)
--- NOTE | 2016-07-13 07:08 | Progress Note-Standard ---
Standard Progress Note Progress Notes/Assess & Plan Progress/Assessment & Plan reports knee remains stiff and painful Gram stain neg for WBC and bacteria cultures pending L knee with mild warmth, no increased effusion, no erythema active ROM 0 IMP--inflammatory flare uncertain etiology. No objective findings for I and D currently will continue to follow Final Diagnosis Patient feeling better Vital Signs Date Time Temp Pulse Resp B/P (MAP) Pulse Ox O2 Delivery O2 Flow Rate FiO2 07/13/16 04:00 98.6 72 20 158/92 97 07/13/16 00:10 99.1 78 18 161/98 98 07/12/16 20:05 97.9 93 19 131/72 93 07/12/16 15:53 97.8 87 19 144/82 97 07/12/16 12:00 97.3 73 16 125/77 96 07/12/16 08:00 97.8 96 16 133/88 97 I & O 07/13/16 07:00 Intake Total 1897.0 ml Output Total 2150 ml Balance -253.0 ml Laboratory Tests Test 07/12/16 19:08 07/13/16 05:21 Range/Units Vancomycin Level Trough 17.0 10.0-20.0 UG/ML C-Reactive Protein High Sensitivity 10.01 H 0.00-0.50 MG/DL LLE--decreased effusion. No erythema or warmth. Improved ROM L knee inflammatory flare, uncertain etiology No need for surgical intervention currently CIRO NUNEZ MD July 13, 2016 07:08
[2016-07-13 08:00] VITALS: BP 126/71
[2016-07-13] MEDS ORDERED: NF-DICLOTA PO (08:46)
--- NOTE | 2016-07-13 08:48 | Discharge Inst-Simple/Standard ---
Discharge Inst-Standard Discharge Medications New, Converted or Re-Newed RX: Transmitted to Pharmacy Patient Instructions/Follow Up Plan of Care/Instructions/FU: Fwup 1 week No work until 07/19/16 Activity as Tolerated: Yes Discharge Diet: Cardiac Diet YESSY BELL DO July 13, 2016 8:48 am
[2016-07-13] MEDS ORDERED: FAMOTIDINE 20 MG (PEPCID) TABLET PO SCH (09:00)
[2016-07-13] MEDS: VANCOMYCIN 1250 MG/NS 250 ML IVPB IV SCH ×2 (09:05)
--- NOTE | 2016-07-13 22:07 | Discharge Summary ---
Diagnosis/Chief Complaint Date of Admission July 10, 2016 at 9:00 pm Date of Discharge July 13, 2016 at 11:18 am Discharge Date: July 13, 2016 Admission Diagnosis Admission Diagnosis 1. Left Knee Pain and Swelling--no evidence of septic joint so etiologies include viral arthritis, pseudogout, new onset of inflammatory arthritis--will continue toradol and morphine for pain control, will check CRP, JUDY, RA, ASO in AM 2. Edema--IVF heplocked, repeat lasix with potassium today 3. Hypertension--stable Discharge Diagnosis 1. Left Knee Pain and Swelling with effusion--suspect viral etiology vs pseudogout, no evidence of septic joint--improving 2. Edema--generalized--improved 3. Hypertension--stable 4. Febrile Illness--Likely Viral Syndrome with negative blood cultures and normal WBC count Reason Hospital Visit This is a 55 year old female who presented to the emergency room with a 4 day history of left knee swelling and pain. She had been using naprosyn and had started colchicine the day prior but the left knee swelling and pain were worsening so she presented to the emergency room for evaluation. Upon examination in the emergency room she was found to be febrile with a temperature of 103. Her left knee was red, swollen, and tender to touch with decreased range of motion due to the pain. She underwent drainage of serosanguinous fluid from the left knee in the emergency room and no WBCs or bacteria were found in the aspirate from her knee. Her uric acid and WBC count were normal but her CRP was elevated. It was decided to admit her for orthopedic consult, IV toradol, pain control, and further evaluation. Discharge Summary Hospital Course Hospital Course This is a 55 year old female who presented to the emergency room with a 4 day history of left knee swelling and pain. She had been using naprosyn and had started colchicine the day prior but the left knee swelling and pain were worsening so she presented to the emergency room for evaluation. Upon examination in the emergency room she was found to be febrile with a temperature of 103. Her left knee was red, swollen, and tender to touch with decreased range of motion due to the pain. She underwent drainage of serosanguinous fluid from the left knee in the emergency room and no WBCs or bacteria were found in the aspirate from her knee. Her uric acid and WBC count were normal but her CRP was elevated. It was decided to admit her for orthopedic consult, IV toradol, pain control, and further evaluation. She was admitted to the medical floor. Due to her fever and elevated CRP, she was covered with IV vancomycin and levaquin until a final was received on her blood and joint fluid cultures. She remained febrile the first day after admission, but following the first 24 hours, she was afebrile. Her knee aspirate was negative for bacteria and her knee swelling improved during her hospital stay. She was also given routine IV toradol with morphine as needed for pain. She did have generalized edema after her aggressive IVF resuscitation that she was given on admission as she was hypotensive in the emergency room. This responded well to lasix and potassium. Her ROM of her left knee improved during her hospital stay as well as her ability to bear weight on her left leg and knee. Clinically, her left knee had no erythema and no increased warmth and the tenderness to palpation was much improved by discharge. Her CRP was trending down and she was feeling much better. It was decided she could be discharged home on an NSAID and followup with me in my office in 1 week. Labs Laboratory Tests 07/11/16 04:37: Red Blood Count 3.30L, Hemoglobin 10.2L, Hematocrit 30L, Erythrocyte Sedimentation Rate 64H, Chloride Level 115H, Carbon Dioxide Level 20L, Calcium Level 7.8L, C-Reactive Protein High Sensitivity 15.71H, Total Protein 5.6L, Albumin 3.1L 07/12/16 05:40: Red Blood Count 3.96L, Chloride Level 110H, C-Reactive Protein High Sensitivity 16.04H, Anti-Streptolysin O Antibody Titer 127H 07/12/16 19:08: 07/13/16 05:21: C-Reactive Protein High Sensitivity 10.01H Procedures None. Discharge Physical Examination Allergies: Coded Allergies: red dye (Unverified Allergy, Unknown, hives, 02/19/15) RED DYE #40 Vitals & I&Os Vital Signs Date Time Temp Pulse Resp B/P (MAP) Pulse Ox O2 Delivery O2 Flow Rate FiO2 07/13/16 11:14 07/13/16 08:00 98.1 85 18 96 07/10/16 19:13 Room Air General Appearance: Alert, Oriented X3, Cooperative Respiratory: Clear to Auscultation Cardiovascular: Regular Rate Extremities: No Clubbing, No Cyanosis, No Edema, Other (left knee swelling and mild tenderness but no erythema and no increased warmth) Skin: Other (vitiligo) Neuro: Other (antalgic gait but much improved) Psych/Mental Status: Mental Status NL, Mood NL Discharge Home Medications Reviewed and agree with Discharge Medication list on patient's Discharge Instruction sheet Instructions to Patient/Family Please see electonic discharge instructions given to patient. Clinical Quality Measures DVT/VTE Risk/Contraindication: Risk Factor Score Per Nursin RFS Level Per Nursing on Admit: 4+=Very High YESSY BELL DO July 13, 2016 10:07 pm
== END 2016-07-13 11:18 | disposition home or self-care (01) | DRG 556 ==
LOC: EDUNIT# 17:14 → ER 17:15 → 4TH 21:00
PROVIDERS: ADMIT Family Medicine; ATTEND Family Medicine
PROC: 0S9D3ZX Drainage of Left Knee Joint, Percutaneous Approach, Diagnostic (ICD-10-PCS; principal; 2016-07-10)
DX: M25.562 Pain in left knee (principal); M25.462 Effusion, left knee; I10 Essential (primary) hypertension; R59.0 Localized enlarged lymph nodes; R50.9 Fever, unspecified; R60.9 Edema, unspecified
CPT/HCPCS: 36415; 71010; 73562; 80053; 80202; 81000; 83605; 84550; 85025; 85610; 85652; 85730; 86038; 86060; 86141; 86430; 87040; 87070; 87205; 89051; 89060; 93005; 96361; 96366; 96367; 96375

== ENCOUNTER → 2016-10-05 | Outpatient (CLI) | payer BC ==
[~2016-10-05] MED LIST changes: +ATOR20TA66 PO; +NF-DICLOTA PO
--- NOTE | 2016-10-05 18:10 | Diagnostic Imaging Report ---
Three views of the cervical spine. INDICATION: Neck pain and right arm numbness. FINDINGS: There is straightening of the cervical spine. There are preserved vertebral body heights. There is mild disc height loss at the C5-C6 level. There is minimal anterior translation of C4 over C5. There is anterior osteophyte formation at C5-C6 and small posterior osteophytes at the C5-C6 and C6-C7 levels. The lateral masses of C1 and C2 have normal alignment as demonstrated on the open-mouth odontoid view. IMPRESSION: Disc degenerative changes with small posterior osteophytes at the C5-C6 and C6-C7 levels. Dictated by: Dictated on workstation # [id number]
== END ==
LOC: RAD 15:35
PROVIDERS: ATTEND Family Medicine
DX: M50.322 Other cervical disc degeneration at C5-C6 level (principal)
CPT/HCPCS: 72040

== ENCOUNTER → 2016-11-08 | Outpatient (CLI) | payer BC | LOC: RAD 16:04 | PROVIDERS: ATTEND Family Medicine | DX: M54.2 Cervicalgia (principal) ==

== ENCOUNTER → 2016-11-12 | Outpatient (CLI) | payer BC ==
[~2016-11-12] MED LIST changes: +DICL100T3 PO; -NF-DICLOTA PO
--- NOTE | 2016-11-12 17:45 | Diagnostic Imaging Report ---
PROCEDURE: MR imaging cervical spine without contrast. TECHNIQUE: Multiplanar, multisequence MR imaging of the cervical spine was performed without contrast. INDICATION: Right arm radiculopathy and neck pain. COMPARISON: None. FINDINGS: BONE MARROW: There is a 10 mm probable hemangioma in the C6 vertebral body. Marrow signal is otherwise unremarkable. CERVICAL CORD: Normal CEREBELLAR TONSILS: Normal C7-T1: Negative C6-7: There is degenerative disc disease with mild disc space narrowing. There is a large posterior disc protrusion which is fairly broad based. This results in moderate central narrowing and moderate foraminal narrowing bilaterally. C5-6: There is degenerative disc disease with disc space narrowing. There is a large right paracentral/lateral disc protrusion resulting in moderate central narrowing and some encroachment/flattening of the cervical cord at this level. There is also fairly severe right foraminal narrowing. C4-5: Negative C3-4: Negative C2-3: Negative C1-2: Negative ADDITIONAL FINDINGS: None IMPRESSION: 1. There are degenerative disc changes with disc protrusions at C6/C7 resulting in moderate central and foraminal stenosis bilaterally and more prominent in the right paracentral and lateral location at C5/C6 resulting in moderate central narrowing with flattening of the cervical cord as well as fairly severe right foraminal stenosis at this level. 2. Probable hemangioma in the C5 vertebral body. 3. No additional significant abnormality is seen. Dictated by: Dictated on workstation # [id number]
== END ==
LOC: RAD 16:14
PROVIDERS: ATTEND Family Medicine
DX: M50.322 Other cervical disc degeneration at C5-C6 level (principal); M50.223 Other cervical disc displacement at C6-C7 level; M48.02 Spinal stenosis, cervical region
CPT/HCPCS: 72141

== ENCOUNTER 2016-11-24 16:19 | Outpatient (RCR) | payer BC ==
[~2016-11-24 16:19] MED LIST changes: -DICL100T3 PO; +NF-DICLOTA PO
== END 2016-11-27 | disposition home or self-care (01) ==
PROVIDERS: ATTEND Family Medicine
DX: M50.30 Other cervical disc degeneration, unspecified cervical region (principal)

== ENCOUNTER 2016-12-30 16:12 | Outpatient (RCR) | payer BC ==
[~2016-12-30 16:12] MED LIST changes: +DICL100T3 PO; -NF-DICLOTA PO
== END 2017-01-13 08:52 | disposition home or self-care (01) ==
PROVIDERS: ATTEND Family Medicine
DX: M50.33 Other cervical disc degeneration, cervicothoracic region (principal)

== ENCOUNTER 2017-02-28 20:55 | Emergency (ER) | payer BC ==
[~2017-02-28] VITALS: Ht 167.6 cm; Wt 84.0 kg
[2017-02-28] MEDS ORDERED: KETOROLAC 30 MG/ML VIAL IVP ONE (21:00)
--- NOTE | 2017-02-28 21:11 | ED Abdominal Pain ---
General Stated Complaint: ABD PAIN,POSS KIDNEY STONE Source of Information: Patient Exam Limitations: No Limitations History of Present Illness Time Seen By Provider: 21:02 Initial Comments Patient presents to ER by private conveyance with a chief complaint that about 4 :00 this evening, 5 hours ago started having left flank pain that was severe, colicky, worse with movement, similar to her kidney stones in the past. She's had no fevers, chills, vomiting, diarrhea, dysuria. She did have some nausea earlier in the past on its own. She's been drinking a lot of fluids and to get it to go away on its own but it is only gotten worse so she came to the ER for pain relief. Allergies and Home Medications Allergies Coded Allergies: red dye (Unverified Allergy, Unknown, hives, 02/19/15) RED DYE #40 Home Medications Aspirin 81 Mg Tab.chew, 81 MG PO HS, (Reported) Atorvastatin Calcium 20 Mg Tablet, 20 MG PO HS, (Reported) Diclofenac Sod 100 Mg Tab, 100 MG PO BID, #60 Prescribed by: YESSY BELL on 07/13/16 0846 Famotidine 20 Mg Tablet, 20 MG PO DAILY, (Reported) Lisinopril 10 Mg Tablet, 10 MG PO HS, (Reported) Montelukast Sodium 10 Mg Tablet, 10 MG PO DAILY PRN for ALLERGIES, (Reported) Review of Systems Constitutional: No chills, No diaphoresis, No fever, No malaise EENTM: No Eye Pain, No Ear Pain Respiratory: Denies Cough, Denies Shortness of Air Cardiovascular: Denies Chest Pain, Denies Palpitations, Denies Syncope Gastrointestinal: See HPI, Denies Abdomen Distended, Abdominal Pain (left flank pain), Denies Constipated, Denies Diarrhea, Nausea, Denies Vomiting Genitourinary: Denies Burning, Denies Discharge Musculoskeletal: back pain (left flank), No neck pain Skin: No pruritus, No rash Psychiatric/Neurological: Denies Headache, Denies Numbness, Denies Paresthesia Past Xnxypep-Npbanx-Bsbfrx Hx Patient Social History Alcohol Use: Denies Use Recreational Drug Use: No Smoking Status: Never a Smoker 2nd Hand Smoke Exposure: No Recent Foreign Travel: No Contact w/Someone Who Travel: No Recent Hopitalizations: No Immunizations Up To Date Tetanus Booster (TDap): Less than 5yrs PED Vaccines UTD: No Date of Influenza Vaccine: July 10, 2015 Seasonal Allergies Seasonal Allergies: No Surgeries History of Surgeries: Yes Surgeries: Hysterectomy Respiratory History of Respiratory Disorde: No Currently Using CPAP: No Currently Using BIPAP: No Cardiovascular History of Cardiac Disorders: No Neurological History of Neurological Disord: No 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 System Hx 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 Disorders: No Sexually Transmitted Disease: No HIV/AIDS: No Female 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 Disorders: Denies 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 Physical Exam Vital Signs VS - Last 72 Hours, by Label 02/28/17 20:55 B/P (MAP) Capillary Refill : General Appearance: WD/WN, moderate distress HEENT: PERRL/EOMI, pharynx normal Respiratory: chest non-tender, no respiratory distress, no accessory muscle use Cardiovascular: normal peripheral pulses, no edema Peripheral Pulses: 2+ Radial Pulses (R), 2+ Radial Pulses (L) Gastrointestinal: normal bowel sounds, non tender, soft Back: normal inspection, CVA tenderness (L) (to percussion) Neurologic/Psychiatric: alert, oriented x 3 Skin: normal color, warm/dry Progress/Results/Core Measures Results/Orders Lab Results Laboratory Tests Test 02/28/17 21:05 Range/Units White Blood Count 7.1 4.3-11.0 10^3/uL Red Blood Count 4.43 4.35-5.85 10^6/uL Hemoglobin 14.1 11.5-16.0 G/DL Hematocrit 40 35-52 % Mean Corpuscular Volume 90 80-99 FL Mean Corpuscular Hemoglobin 32 25-34 PG Mean Corpuscular Hemoglobin Concent 35 32-36 G/DL Red Cell Distribution Width 12.3 10.0-14.5 % Platelet Count 214 130-400 10^3/uL Mean Platelet Volume 10.5 H 7.4-10.4 FL Neutrophils (%) (Auto) 49 42-75 % Lymphocytes (%) (Auto) 39 12-44 % Monocytes (%) (Auto) 9 0-12 % Eosinophils (%) (Auto) 2 0-10 % Basophils (%) (Auto) 0 0-10 % Neutrophils # (Auto) 3.5 1.8-7.8 X 10^3 Lymphocytes # (Auto) 2.8 1.0-4.0 X 10^3 Monocytes # (Auto) 0.7 0.0-1.0 X 10^3 Eosinophils # (Auto) 0.1 0.0-0.3 10^3/uL Basophils # (Auto) 0.0 0.0-0.1 10^3/uL Urine Color YELLOW Urine Clarity CLEAR Urine pH 7 5-9 Urine Specific [place] 1.005 L 1.016-1.022 Urine Protein NEGATIVE NEGATIVE Urine Glucose (UA) NEGATIVE NEGATIVE Urine Ketones NEGATIVE NEGATIVE Urine Nitrite NEGATIVE NEGATIVE Urine Bilirubin NEGATIVE NEGATIVE Urine Urobilinogen NORMAL NORMAL MG/DL Urine Leukocyte Esterase NEGATIVE NEGATIVE Urine RBC (Auto) NEGATIVE NEGATIVE Urine RBC NONE /HPF Urine WBC RARE /HPF Urine Squamous Epithelial Cells 0-2 /HPF Urine Crystals NONE /LPF Urine Bacteria NONE /HPF Urine Casts NONE /LPF Urine Mucus NEGATIVE /LPF Urine Culture Indicated NO Sodium Level 142 135-145 MMOL/L Potassium Level 3.6 3.6-5.0 MMOL/L Chloride Level 106 98-107 MMOL/L Carbon Dioxide Level 21 21-32 MMOL/L Anion Gap 15 H 5-14 MMOL/L Blood Urea Nitrogen 15 7-18 MG/DL Creatinine 0.91 0.60-1.30 MG/DL Estimat Glomerular Filtration Rate > 60 BUN/Creatinine Ratio 16 Glucose Level 86 70-105 MG/DL Calcium Level 9.5 8.5-10.1 MG/DL My Orders Orders - LATASHA ARVIZU Ct Abd/Pelvis Wo(Kidney Stone) (02/28/17 21:08) Fentanyl Injection (Sublimaze Injection (02/28/17 21:15) Medications Given in ED Current Medications Medications Dose Ordered Sig/Eusebio Route Start Time Stop Time Status Last Admin Dose Admin Fentanyl Citrate 50 mcg ONCE ONCE IVP 02/28/17 21:15 02/28/17 21:16 DC 02/28/17 21:16 50 MCG Ketorolac Tromethamine 30 mg ONCE ONCE IVP 02/28/17 21:00 1/1/18 21:01 DC 02/28/17 21:10 30 MG Vital Signs/I&O Vital Sign - Last 12Hours 02/28/17 20:55 B/P (MAP) Diagnostic Imaging Diagonstic Imaging: CT (without contrast kidney stone) Plain Films/CT/US/NM/MRI: abdomen, pelvis Comments NAME: TOSHIAERIKA HERNANDEZ MED REC#: [id number] PHYSICIAN: LATASHA ARVIZU MD CC: LEILANI VEGA; LATASHA ARVIZU Page 2 of 2 RADIOLOGY REPORT VIA [facility]. [place], [place] CC: LEILANI VEGA; LATASHA ARVIZU Page 1 of 2 RADIOLOGY REPORT NAME: ERIKA POPE MED REC#: [id number] PT STATUS: REG ER : 1960 PHYSICIAN: LATASHA ARVIZU MD ADMIT DATE: 02/28/17/ER Signed Date of Exam: 02/28/17 CT ABD/PELVIS WO(KIDNEY STONE) PROCEDURE: CT urinary tract, rule out kidney stone. TECHNIQUE: Multiple contiguous axial images were obtained through the abdomen and pelvis without the use of intravenous contrast. INDICATION: Left flank pain COMPARISON:02/19/2015 FINDINGS: The lung bases are clear. Liver, gallbladder, spleen, pancreas, adrenal glands, vascular structures and bowel are stable. Nonobstructive renal calculi are seen bilaterally. Both ureters have a normal appearance. No hydronephrosis or hydroureter seen. The visualized urinary bladder is normal. The uterus is surgically absent. The appendix normal. Osseous structures stable. IMPRESSION: 1. Stable bilateral nonobstructive renal calculi. No hydronephrosis, hydroureter or inflammation identified. 2. Surgically absent uterus. 3. Normal appendix. Dictated by: Dictated on workstation # [id number] Dict: 02/28/172126 Trans: 02/28/172137 Interpreted by: LEILANI VEGA Electronically signed by: LEILANI VEGA 02/28/172137 Reviewed: Reviewed by Me Departure Impression Impression: Primary Impression: Ureterolithiasis Disposition: 01 HOME, SELF-CARE Condition: Improved Departure-Patient Inst. Decision time for Depature: 22:36 Referrals: YESSY BELL DO (PCP/Family) Primary Care Physician Patient Instructions: Kidney Stones (DC) Add. Discharge Instructions: Is not unusual to have some pain and pink tinged urine up to a day or 2 after passing a kidney stone. If you're pain becomes more severe he may be passing another kidney stone so drink lots of fluids and use the hydrocodone every 6 hours as needed as well as ibuprofen 800 mg every 8 hours as needed and heat wraps around your back. Scripts Hydrocodone Bit/Acetaminophen (Hydrocodone/Acetaminophen 5/325mg Tablet) 1 Tab Tab 1-2 EACH PO Q6H Y for BREAKTHROUGH PAIN, #15 TAB 0 Refills Prov: LATASHA ARVIZU 02/28/17 LATASHA ARVIZU Feb 28, 2017 21:11
[2017-02-28] MEDS ORDERED: fentaNYL INJECTION 100 MCG/2 ML AMP IVP ONE (21:15)
[2017-02-28 21:18] LABS: BASOPHILS % (AUTO) 0 % (0-10); BILIRUBIN,URINE NEGATIVE (NEGATIVE); CLARITY,URINE CLEAR; COLOR,URINE YELLOW; EOSINOPHILS # (AUTO) 0.1 10^3/uL (0.0-0.3); EOSINOPHILS % (AUTO) 2 % (0-10); GLUCOSE, URINE (UA) NEGATIVE (NEGATIVE); HEMATOCRIT 40 % (35-52); HEMOGLOBIN 14.1 G/DL (11.5-16.0); KETONES,URINE NEGATIVE (NEGATIVE); LEUKOCYTE ESTERASE ,URINE NEGATIVE (NEGATIVE); LYMPHOCYTES # (AUTO) 2.8 X 10^3 (1.0-4.0); LYMPHOCYTES % (AUTO) 39 % (12-44); MEAN CORPUSCULAR HEMOGLOBIN 32 PG (25-34); MEAN CORPUSCULAR HGB CONC 35 G/DL (32-36); MEAN CORPUSCULAR VOLUME 90 FL (80-99); MEAN PLATELET VOLUME 10.5 FL (7.4-10.4); MONOCYTES # (AUTO) 0.7 X 10^3 (0.0-1.0); MONOCYTES % (AUTO) 9 % (0-12); NEUTROPHILS # (AUTO) 3.5 X 10^3 (1.8-7.8); NEUTROPHILS % (AUTO) 49 % (42-75); NITRITE,URINE NEGATIVE (NEGATIVE); PH,URINE 7 (5-9); PLATELET COUNT 214 10^3/uL (130-400); PROTEIN,URINE NEGATIVE (NEGATIVE); RED BLOOD COUNT 4.43 10^6/uL (4.35-5.85); RED CELL DISTRIBUTION WIDTH 12.3 % (10.0-14.5); UROBILINOGEN,URINE NORMAL (NORMAL); WHITE BLOOD COUNT 7.1 10^3/uL (4.3-11.0)
[2017-02-28 21:27] LABS: SQUAMOUS EPITHELIAL CELL,UR 0-2 /HPF; WBC,URINE RARE /HPF
--- NOTE | 2017-02-28 21:32 | Diagnostic Imaging Report ---
PROCEDURE: CT urinary tract, rule out kidney stone. TECHNIQUE: Multiple contiguous axial images were obtained through the abdomen and pelvis without the use of intravenous contrast. INDICATION: Left flank pain COMPARISON:02/19/2015 FINDINGS: The lung bases are clear. Liver, gallbladder, spleen, pancreas, adrenal glands, vascular structures and bowel are stable. Nonobstructive renal calculi are seen bilaterally. Both ureters have a normal appearance. No hydronephrosis or hydroureter seen. The visualized urinary bladder is normal. The uterus is surgically absent. The appendix normal. Osseous structures stable. IMPRESSION: 1. Stable bilateral nonobstructive renal calculi. No hydronephrosis, hydroureter or inflammation identified. 2. Surgically absent uterus. 3. Normal appendix. Dictated by: Dictated on workstation # [id number]
[2017-02-28 21:36] LABS: BUN/CREATININE RATIO 16; CALCIUM 9.5 MG/DL (8.5-10.1); CARBON DIOXIDE 21 MMOL/L (21-32); CHLORIDE 106 MMOL/L (98-107); CREATININE SERUM 0.91 MG/DL (0.60-1.30); GFR ESTIMATED > 60; GLUCOSE 86 MG/DL (70-105); POTASSIUM 3.6 MMOL/L (3.6-5.0); SODIUM 142 MMOL/L (135-145)
[2017-02-28] MEDS ORDERED: ACHD5005 PO (22:38)
[2017-02-28 22:54] VITALS: BP 138/83
== END 2017-02-28 22:45 | disposition home or self-care (01) ==
LOC: EDUNIT# 20:55 → ER 20:56
DX: N20.1 Calculus of ureter (principal); Z90.710 Acquired absence of both cervix and uterus; Z87.19 Personal history of other diseases of the digestive system; Z79.82 Long term (current) use of aspirin
CPT/HCPCS: 36415; 74176; 80048; 81000; 85025

== ENCOUNTER → 2017-08-15 | Outpatient (CLI) | payer BC ==
[~2017-08-15] MED LIST changes: +ACHD5005 PO
--- NOTE | 2017-08-15 10:17 | Diagnostic Imaging Report ---
INDICATION: Routine screening. COMPARISON: 10/20/2015 and 09/20/2012. TECHNIQUE: 2D and 3D bilateral screening mammography was performed with CAD. FINDINGS: Both breasts remain heterogeneously dense, limiting the sensitivity of mammography. No mass or malignant appearing microcalcifications are seen. There are benign calcifications present. The axillae are unremarkable. IMPRESSION: No mammographic features suspicious for malignancy are identified. ACR BI-RADS Category 2: Benign findings. Result letter will be mailed to the patient. Note: At least 10% of breast cancer is not imaged by mammography. Dictated by: Dictated on workstation # [id number]
== END ==
LOC: RAD 07:22
PROVIDERS: ATTEND Family Medicine
DX: Z12.31 Encounter for screening mammogram for malignant neoplasm of breast (principal)
CPT/HCPCS: 77067

== ENCOUNTER 2018-02-16 10:44 | Outpatient (CLI) | payer BC ==
[~2018-02-16] VITALS: Ht 167.6 cm; Wt 89.8 kg
[2018-02-16] MEDS ORDERED: GABA-486 PO (13:10)
[2018-02-16] MEDS ORDERED: CELE-63 PO (13:10)
== END 2018-02-16 13:14 | disposition home or self-care (01) ==
LOC: PREOP 10:44
PROVIDERS: ATTEND Surgery
DX: Z01.818 Encounter for other preprocedural examination (principal)

== ENCOUNTER → 2018-02-20 | Day surgery (SDC) | payer BC ==
[~2018-02-20] MED LIST changes: +CELE-63 PO; +GABA-486 PO; +MIDAZOLAM 2 MG/2 ML (VERSED) VIAL IVP ONE; +MIDAZOLAM 2 MG/2 ML (VERSED) VIAL ONE; +NS IV 500 ML 500 ML IV PRN; +NS IV 500 ML 500 ML ONE; +fentaNYL INJECTION 100 MCG/2 ML AMP IVP ONE; +fentaNYL INJECTION 100 MCG/2 ML AMP ONE
--- NOTE | 2018-02-20 11:36 | Conscious Sedation/ASA ---
Conscious Sedation Pre-Proced Time 11:36 ASA Score 2 For ASA 3 and 4: Consider anesthesia and medical clearance. Also, for patients with a history of failed moderate sedation consider anesthesia. Airway Lungs Heart ASA score ASA 1: a normal healthy patient ASA 2: a patient with a mild systemic disease (mid diabetes, controlled hypertension, obesity ASA 3: a patient with a severe systemic disease that limits activity (angina , COPD, prior Myocardial infarction) ASA 4: a patient with an incapacitating disease that is a constant threat to life (CHF, renal failure) ASA 5: a moribund patient not expected to survive 24 hrs. (ruptured aneurysm) ASA 6: a declared brain patient whose organs are being harvested. For emergent operations, add the letter E after the classification Mallampati Classification Grade 1 Sedation Plan Discussed options with patient/fam The patient is an appropriate candidate to undergo the planned procedure, sedation, and anesthesia. The patient immediately re-assessed prior to indication. JAMARCUS MONTANEZ MD Feb 20, 2018 11:36
--- NOTE | 2018-02-20 11:36 | History & Physicial ---
History of Present Illness History of Present Illness Reason for visit/HPI to undergo surveillance colonoscopy. Reports a personal history of polyps and a family history as well. Date of Admission 02/20/18 Date Seen by a Provider: Feb 20, 2018 Time Seen by a Provider: 11:34 I consulted on this patient on 02/20/18 11:34 Attending Physician Jamarcus Giron MD Admitting Physician Vidya Montes DO Consult Allergies and Home Medications Allergies Coded Allergies: red dye (Unverified Allergy, Unknown, hives, 02/19/15) RED DYE #40 Home Medications Atorvastatin Calcium 20 Mg Tablet, 20 MG PO HS, (Reported) Celecoxib 200 Mg Capsule, 200 MG PO HS, (Reported) Famotidine 20 Mg Tablet, 20 MG PO DAILY, (Reported) Gabapentin 100 Mg Capsule, 100 MG PO HS, (Reported) Lisinopril 10 Mg Tablet, 10 MG PO HS, (Reported) Montelukast Sodium 10 Mg Tablet, 10 MG PO DAILY PRN for ALLERGIES, (Reported) Patient Home Medication List Home Medication List Reviewed: Yes Past Yijvvvc-Zrxobq-Rqerkn Hx Patient Social History Marrital Status: Employed/Student: employed 2nd Hand Smoke Exposure: No Recent Foreign Travel: No Contact w/other who traveled: No Recent Hopitalizations: No Immunizations Up To Date Tetanus Booster (TDap): Less than 5yrs Pediatric: No Date of Influenza Vaccine: Nov 09, 2017 Seasonal Allergies Seasonal Allergies: No Surgeries Yes Hysterectomy Respiratory No Currently Using CPAP: No Currently Using BIPAP: No Cardiovascular No Neurological No 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 System Hx 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 Disorders: No Sexually Transmitted Disease: No HIV/AIDS: No Female 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 Disorders: Denies 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 Review of Systems Constitutional: no symptoms reported EENTM: no symptoms reported Respiratory: no symptoms reported Cardiovascular: no symptoms reported Gastrointestinal: no symptoms reported Genitourinary: no symptoms reported Musculoskeletal: no symptoms reported Skin: no symptoms reported Psychiatric/Neurological: No Symptoms Reported Physical Exam Vital Signs Capillary Refill : Height, Weight, BMI Height: 5'6.00" Weight: 198lbs. 0.0oz. [id number]; 32.0 BMI Method:Estimated General Appearance: No Apparent Distress Neck: Normal Inspection Respiratory: Lungs Clear Cardiovascular: Regular Rate, Rhythm Gastrointestinal: Non Tender, Soft Rectal: Deferred Extremity: No Calf Tenderness Neurologic/Psychiatric: Oriented x3 Skin: Warm/Dry Assessment/Plan Assessment and Plan lady with a personal and family history of polyps. For surveillance colonoscopy Admission Diagnosis Admission Status: Other (Outpt Proc) JAMARCUS GIRON MD Feb 20, 2018 11:36
--- NOTE | 2018-02-20 13:20 | Endo Procedure Record ---
Endo Procedure Report Date of Procedure Last Colonoscopy: Yes Feb 20, 2018 Surgeon (s) JAMARCUS MONTANEZ MD Post Procedure/Op Diagnosis sigmoid diverticulosis Procedure Performed colonoscopy to cecum Description of Procedure Anesthesia Type: Conscious Sedation Specimen(s) collected/removed none Description of the Procedure Indication for the procedure: This lady came in for surveillance colonoscopy. Informed consent was obtained after reviewing the procedure in detail. Description of the procedure: She was placed in left lateral decubitus position and her vital signs were monitored. Conscious sedation was achieved using Versed and fentanyl. Examination of the perianal area revealed skin tags. Digital examination was unremarkable. The colonoscope was then introduced into the rectum and advanced all the way up to the cecum. The scope was then withdrawn slowly and the mucosa examined in a systematic fashion. Finding: Very few sigmoid diverticulae. No recurrent polyps were found. She tolerated the procedure well and was taken back to the nursing area in a stable condition. Impression: Surveillance colonoscopy. No recurrent polyps. Recommend repeating in 10 years. Copy Copies To 1: YESSY BELL XAVIER M MD Feb 20, 2018 13:20
--- NOTE | 2018-02-20 13:21 | Discharge Inst-Simple/Standard ---
Discharge Inst-Standard Discharge Medications New, Converted or Re-Newed RX: Other Patient Instructions/Follow Up Plan of Care/Instructions/FU: repeat colonoscopy in 10 years Activity as Tolerated: Yes Discharge Diet: No Restrictions JAMARCUS MONTANEZ MD Feb 20, 2018 13:21
[2018-02-20 13:30] VITALS: BP 126/64
[2018-02-20 13:55] VITALS: BP 136/92
[2018-02-20 14:00] VITALS: BP 136/92
== END | disposition home or self-care (01) ==
LOC: ENDO 10:55
PROVIDERS: ATTEND Surgery
DX: Z12.11 Encounter for screening for malignant neoplasm of colon (principal); Z86.010 Personal history of colon polyps; K57.30 Diverticulosis of large intestine without perforation or abscess without bleeding; Z79.899 Other long term (current) drug therapy

== ENCOUNTER → 2018-08-25 | Outpatient (CLI) | payer BC ==
[~2018-08-25] MED LIST changes: -DICL100T3 PO; +DICL100T83 PO; -MIDAZOLAM 2 MG/2 ML (VERSED) VIAL IVP ONE; -MIDAZOLAM 2 MG/2 ML (VERSED) VIAL ONE; -NS IV 500 ML 500 ML IV PRN; -NS IV 500 ML 500 ML ONE; -fentaNYL INJECTION 100 MCG/2 ML AMP IVP ONE; -fentaNYL INJECTION 100 MCG/2 ML AMP ONE
== END ==
LOC: RAD 07:30
PROVIDERS: ATTEND Nurse Practitioner Family
DX: Z12.31 Encounter for screening mammogram for malignant neoplasm of breast (principal)
CPT/HCPCS: 77067

== ENCOUNTER 2019-06-27 20:37 | Emergency (ER) | payer BC ==
[~2019-06-27] VITALS: Ht 167.4 cm; Wt 92.2 kg
[~2019-06-27 20:37] MED LIST changes: -MONT10TA24 PO; +MONT10TA26 PO; -TAMS0.4C98 PO; +TMSL.4C PO
[2019-06-27] MEDS ORDERED: NS IV 1000 ML 1,000 ML IV SCH (20:46)
--- NOTE | 2019-06-27 20:53 | ED Back Pain ---
General Chief Complaint: Back Problems Stated Complaint: BACK AND CP Source of Information: Patient Exam Limitations: No Limitations History of Present Illness Date Seen by Provider: Jun 27, 2019 Time Seen by Provider: 20:39 Initial Comments Patient presents ER by private conveyance from home with chief complaint of one hour of pain 3 out of 10 not worse with movement, deep inspiration or made better by anything. She has not taken anything for the pain. She ate dinner about 45 minutes ago with pain preceded that. She's not having any shortness of breath cough fevers chills nausea or sweats. She said dinner did not sit well on her stomach. She's had a hysterectomy but no other abdominal surgeries. No gallbladder workup. She's had a heart catheter about 5 years ago locally which did not demonstrate anything significant. She has a history of high blood pressure and hyperlipidemia but no diabetes, smoking or previous coronary disease. No early-onset familial coronary disease. She denies any edema or swelling. No sick contacts. No diarrhea, constipation, dysuria. Last oral intake was 45 minutes ago. Prior to that was approximately 6 hours ago she had chips and drink. Cardiac catheterization 2016, for years ago by Dr. Borges: No obstructive disease in the coronary system. EF of 60%. Normal thoracic aorta and aortic root. Suspect at the time her chest pain was related to severe hypertension. Allergies and Home Medications Allergies Coded Allergies: red dye (Unverified Allergy, Unknown, hives, 02/19/15) RED DYE #40 Home Medications Atorvastatin Calcium 20 Mg Tablet, 20 MG PO HS, (Reported) Lisinopril 10 Mg Tablet, 10 MG PO HS, (Reported) Patient Home Medication List Home Medication List Reviewed: Yes Review of Systems Constitutional: No chills, No fever EENTM: No ear pain, No mouth pain Respiratory: No cough, No short of breath Cardiovascular: see HPI; No edema, No palpitations Gastrointestinal: No abdominal pain, No melena, No nausea Genitourinary: No discharge, No dysuria Musculoskeletal: see HPI, back pain; No joint pain Skin: No pruritus, No rash All Other Systems Reviewed Negative Unless Noted: Yes Past Bfwjzpi-Fefmni-Aufefx Hx Patient Social History Alcohol Use: Denies Use Recreational Drug Use: No Smoking Status: Never a Smoker 2nd Hand Smoke Exposure: No Recent Foreign Travel: No Contact w/Someone Who Travel: No Recent Hopitalizations: No Immunizations Up To Date Tetanus Booster (TDap): Less than 5yrs PED Vaccines UTD: No Date of Influenza Vaccine: Nov 09, 2017 Seasonal Allergies Seasonal Allergies: No Past Medical History Surgeries: Yes Hysterectomy Respiratory: No Currently Using CPAP: No Currently Using BIPAP: No Cardiac: No Neurological: No 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 Disorders: No Female 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 No Pertinent Family Hx Physical Exam Vital Signs Vital Signs - First Documented 06/27/19 20:48 Temp 36.6 Pulse 112 Resp 18 B/P (MAP) 174/104 (127) Pulse Ox 99 O2 Delivery Room Air Capillary Refill : Height, Weight, BMI Height: 5'6.00" Weight: 198lbs. 0.0oz. [id number]; 32.0 BMI Method:Estimated General Appearance: WD/WN, Mild Distress HEENT: PERRL/EOMI, Pharynx Normal, Moist Mucous Membranes Neck: Full Range of Motion, Normal Inspection, Non Tender, Supple Cardiovascular: Regular Rate, Rhythm, No Edema, Normal Peripheral Pulses Respiratory: Chest Non Tender, Lungs Clear, Normal Breath Sounds, No Accessory Muscle Use, No Respiratory Distress Peripheral Pulses: 2+ Radial Pulses (R), 2+ Radial Pulses (L) Back: Normal Inspection, No Vertebral Tenderness, Other (nontender to palpation at the level where she is experiencing the pain T6 through T8 left side of the spine/paraspinous muscles posteriorly. No deformity or step-off or evidence of trauma.) Extremity: Normal Capillary Refill, Normal Inspection, No Pedal Edema Neurologic/Psychiatric: Alert, Oriented x3 Skin: Normal Color, Warm/Dry (no evidence of rash over the area of pain) Progress/Results/Core Measures Results/Orders Lab Results Laboratory Tests Test 06/27/19 20:40 06/27/19 21:55 Range/Units White Blood Count 7.8 4.3-11.0 10^3/uL Red Blood Count 4.83 4.35-5.85 10^6/uL Hemoglobin 14.8 11.5-16.0 G/DL Hematocrit 43 35-52 % Mean Corpuscular Volume 89 80-99 FL Mean Corpuscular Hemoglobin 31 25-34 PG Mean Corpuscular Hemoglobin Concent 34 32-36 G/DL Red Cell Distribution Width 13.2 10.0-14.5 % Platelet Count 229 130-400 10^3/uL Mean Platelet Volume 9.9 7.4-10.4 FL Neutrophils (%) (Auto) 54 42-75 % Lymphocytes (%) (Auto) 35 12-44 % Monocytes (%) (Auto) 8 0-12 % Eosinophils (%) (Auto) 3 0-10 % Basophils (%) (Auto) 0 0-10 % Neutrophils # (Auto) 4.2 1.8-7.8 X 10^3 Lymphocytes # (Auto) 2.7 1.0-4.0 X 10^3 Monocytes # (Auto) 0.6 0.0-1.0 X 10^3 Eosinophils # (Auto) 0.2 0.0-0.3 10^3/uL Basophils # (Auto) 0.0 0.0-0.1 10^3/uL Sodium Level 141 135-145 MMOL/L Potassium Level 3.6 3.6-5.0 MMOL/L Chloride Level 105 98-107 MMOL/L Carbon Dioxide Level 20 L 21-32 MMOL/L Anion Gap 16 H 5-14 MMOL/L Blood Urea Nitrogen 14 7-18 MG/DL Creatinine 1.09 0.60-1.30 MG/DL Estimat Glomerular Filtration Rate 52 BUN/Creatinine Ratio 13 Glucose Level 116 H 70-105 MG/DL Calcium Level 9.2 8.5-10.1 MG/DL Corrected Calcium 8.8 8.5-10.1 MG/DL Total Bilirubin 0.6 0.1-1.0 MG/DL Aspartate Amino Transf (AST/SGOT) 20 5-34 U/L Alanine Aminotransferase (ALT/SGPT) 28 0-55 U/L Alkaline Phosphatase 99 40-136 U/L Troponin I < 0.028 < 0.028 <0.028 NG/ML C-Reactive Protein High Sensitivity 0.15 0.00-0.50 MG/DL Total Protein 7.9 6.4-8.2 GM/DL Albumin 4.5 3.2-4.5 GM/DL Lipase 50 8-78 U/L My Orders Orders - LATASHA ARVIZU Ed Iv/Invasive Line Start (06/27/19 20:46) Ns Iv 1000 Ml (Sodium Chloride 0.9%) (06/27/19 20:46) Cbc With Automated Diff (06/27/19 20:46) Comprehensive Metabolic Panel (06/27/19 20:46) Hs C Reactive Protein (06/27/19 20:46) Lipase (06/27/19 20:46) Troponin I (06/27/19 20:46) Chest Pa/Lat (2 View) (06/27/19 20:46) Ekg Tracing (06/27/19 20:46) Continuous Ekg Monitoring (06/27/19 20:46) Ketorolac Injection (Toradol Injection) (06/27/19 21:00) Pantoprazole Injection (Protonix Injecti (06/27/19 21:00) Nitroglycerin 0.4 Mg Btl 25's (Nitrostat (06/27/19 21:30) Lidocaine 2% Viscous 15 Ml (Xylocaine Vi (06/27/19 21:45) Antacid Suspension (Mylanta Suspension (06/27/19 21:45) Troponin I (06/27/19 21:53) Medications Given in ED Current Medications Medications Dose Ordered Sig/Eusebio Route Start Time Stop Time Status Last Admin Dose Admin Al Hydrox/Mg Hydrox/Simethicone 30 ml ONCE ONCE PO 06/27/19 21:45 06/27/19 21:46 DC 06/27/19 21:53 30 ML Ketorolac Tromethamine 30 mg ONCE ONCE IVP 06/27/19 21:00 06/27/19 21:01 DC 06/27/19 20:55 30 MG Lidocaine HCl 15 ml ONCE ONCE PO 06/27/19 21:45 06/27/19 21:46 DC 06/27/19 21:53 15 ML Nitroglycerin 0.4 mg NEEDED PRN SL 06/27/19 21:30 06/27/19 21:26 0.4 MG Pantoprazole 40 mg ONCE ONCE IV 06/27/19 21:00 06/27/19 21:01 DC 06/27/19 20:59 40 MG Vital Signs/I&O 06/27/19 06/27/19 20:48 20:55 Temp 36.6 36.6 Pulse 112 Resp 18 B/P (MAP) 174/104 (127) Pulse Ox 99 O2 Delivery Room Air Progress Progress Note #1: Time: 20:52 Progress Note Referred pain from gallbladder, heart, pleurisy? Esophageal spasm, GERD? Plan to get a 2 view chest x-ray, labs. She is tachycardic we'll give her a liter of fluids in anticipation we may need further imaging. We will get a CRP looking for evidence of inflammation. Toradol for her discomfort. If we can control her pain and she does not have significant lab abnormalities then we may recommend ultrasound right upper quadrant outpatient. EKG and troponin. Plan to give her pantoprazole IV. Her blood pressure is modestly elevated at 180 systolic. Pain, anxiety? Plan to observe. Progress Note #2: Time: 21:22 Progress Note Pain is not improved get with Toradol and pantoprazole. We'll give her some nitroglycerin. Cardiology's previous theory was that perhaps her chest pain was related to her high blood pressure. Her blood pressure still around 170. Initial ECG Impression Date: Jun 27, 2019 Initial ECG Impression Time: 20:51 Initial ECG Rate: 96 Initial ECG Rhythm: Normal Sinus Initial ECG Intervals: Normal Initial ECG Impression: Normal Initial ECG Comparisson: Unchanged Comment Normal sinus rhythm without clinically relevant ST elevation or depression. Diagnostic Imaging Diagonstic Imaging: Xray Plain Films/CT/US/NM/MRI: chest (2v) Comments NAME: ERIKA POPE MED REC#: [id number] PT STATUS: REG ER : 1960 PHYSICIAN: LATASHA ARVIZU MD ADMIT DATE: 06/27/19/ER Draft Date of Exam:06/27/19 CHEST PA/LAT (2 VIEW) INDICATION: Posterior left rib pain COMPARISON: 07/10/2016 FINDINGS: Frontal and lateral views of the chest demonstrate normal heart size and pulmonary vascularity. The lungs are clear. There are no signs of infiltrate, pleural effusions or pneumothoraces. The visualized osseous structures show no acute abnormalities. IMPRESSION: 1. No acute process. No signs of infiltrates, effusions or pneumothoraces. Dictated on workstation # [id number] Dict: 06/27/192113 Trans: 06/27/192115 GIL [id number] Interpreted by: MIRANDA DIAZ MD Electronically signed by: Reviewed: Reviewed by Me Departure Impression Primary Impression: Back pain Qualified Codes: M54.6 - Pain in thoracic spine Disposition: 01 HOME, SELF-CARE Condition: Stable Departure-Patient Inst. Decision time for Depature: 22:54 Referrals: YESSY BELL DO (PCP/Family) Primary Care Physician Patient Instructions: Upper Back Pain (DC) Add. Discharge Instructions: While we did not determine exactly was causing your back pain; we have not discovered anything dangerous about it either. I suspect that it could be related to your gallbladder and so we are going to do an ultrasound outpatient that you can follow-up with your primary care doctor for the results. You may use Tylenol, ibuprofen etc. for control of your pain. Heating pads and muscle rubs may be helpful as well. If your pain becomes intractable or you begin to experience nausea and vomiting, fever etc. then please return to the ER for further evaluation. All discharge instructions reviewed with patient and/or family. Voiced understanding. Copy Copies To 1: YESSY BELL TITUS J Jun 27, 2019 20:53
[2019-06-27 20:54] LABS: BASOPHILS % (AUTO) 0 % (0-10); EOSINOPHILS # (AUTO) 0.2 10^3/uL (0.0-0.3); EOSINOPHILS % (AUTO) 3 % (0-10); HEMATOCRIT 43 % (35-52); HEMOGLOBIN 14.8 G/DL (11.5-16.0); LYMPHOCYTES # (AUTO) 2.7 X 10^3 (1.0-4.0); LYMPHOCYTES % (AUTO) 35 % (12-44); MEAN CORPUSCULAR HEMOGLOBIN 31 PG (25-34); MEAN CORPUSCULAR HGB CONC 34 G/DL (32-36); MEAN CORPUSCULAR VOLUME 89 FL (80-99); MEAN PLATELET VOLUME 9.9 FL (7.4-10.4); MONOCYTES # (AUTO) 0.6 X 10^3 (0.0-1.0); MONOCYTES % (AUTO) 8 % (0-12); NEUTROPHILS # (AUTO) 4.2 X 10^3 (1.8-7.8); NEUTROPHILS % (AUTO) 54 % (42-75); PLATELET COUNT 229 10^3/uL (130-400); RED CELL DISTRIBUTION WIDTH 13.2 % (10.0-14.5); WHITE BLOOD COUNT 7.8 10^3/uL (4.3-11.0)
[2019-06-27] MEDS ORDERED: KETOROLAC 30 MG/ML VIAL IVP ONE (21:00)
[2019-06-27] MEDS ORDERED: PANTOPRAZOLE 40 MG (PROTONIX) VIAL IV ONE (21:00)
[2019-06-27 21:13] LABS: ALANINE AMINOTRANSFERASE 28 U/L (0-55); ALBUMIN 4.5 GM/DL (3.2-4.5); ALKALINE PHOSPHATASE 99 U/L (40-136); BILIRUBIN,TOTAL 0.6 MG/DL (0.1-1.0); BUN/CREATININE RATIO 13; CALCIUM 9.2 MG/DL (8.5-10.1); CARBON DIOXIDE 20 MMOL/L (21-32); CHLORIDE 105 MMOL/L (98-107); CREATININE SERUM 1.09 MG/DL (0.60-1.30); GFR ESTIMATED 52; GLUCOSE 116 MG/DL (70-105); LIPASE 50 U/L (8-78); POTASSIUM 3.6 MMOL/L (3.6-5.0); SODIUM 141 MMOL/L (135-145); TOTAL PROTEIN 7.9 GM/DL (6.4-8.2)
--- NOTE | 2019-06-27 21:16 | Diagnostic Imaging Report ---
INDICATION: Posterior left rib pain COMPARISON: 07/10/2016 FINDINGS: Frontal and lateral views of the chest demonstrate normal heart size and pulmonary vascularity. The lungs are clear. There are no signs of infiltrate, pleural effusions or pneumothoraces. The visualized osseous structures show no acute abnormalities. IMPRESSION: 1. No acute process. No signs of infiltrates, effusions or pneumothoraces. Dictated by: Dictated on workstation # [id number]
[2019-06-27] MEDS ORDERED: NITROGLYCERIN 0.4 MG SL TABS BTL 25'S SL PRN (21:30)
[2019-06-27] MEDS ORDERED: LIDOCAINE 2% VISCOUS 15 ML UDC PO ONE (21:45)
[2019-06-27] MEDS ORDERED: ANTACID SUSP 30 ML UDC (MYLANTA) PO ONE (21:45)
[2019-06-27 23:00] VITALS: BP 128/67
== END 2019-06-27 23:06 | disposition home or self-care (01) ==
LOC: EDUNIT# 20:37 → ER 20:39
DX: M54.5 Low back pain (principal); I10 Essential (primary) hypertension; E78.00 Pure hypercholesterolemia, unspecified; Z95.9 Presence of cardiac and vascular implant and graft, unspecified; Z91.041 Radiographic dye allergy status
CPT/HCPCS: 36415; 71046; 80053; 83690; 84484; 85025; 86141; 93005; 93041

== ENCOUNTER → 2019-06-29 | Outpatient (CLI) | payer BC ==
--- NOTE | 2019-06-29 07:46 | Diagnostic Imaging Report ---
PROCEDURE: US Gallbladder. TECHNIQUE: Multiple real-time grayscale images were obtained over the right upper quadrant in various projections. INDICATION: Abdominal pain after eating. COMPARISON: None available. FINDINGS: The liver is normal in size and echogenicity. There is no focal hepatic mass. The main portal vein is patent with antegrade flow. There is a nonmobile 2 mm mural nodule in the body of the gallbladder which may represent a small polyp versus adherent gallstone. No pericholecystic fluid or gallbladder wall thickening. The common bile duct measures up to 0.3 cm in diameter. No intrahepatic biliary dilation. The visualized portions of the pancreas are normal. Portions of the head and tail are obscured by overlying bowel gas. The right kidney is normal in size. No hydronephrosis, shadowing calculi, or suspicious mass lesion. IMPRESSION: 1. Tiny 2 mm gallbladder wall polyp versus adherent non-shadowing stone. 2. No sonographic features of acute cholecystitis or biliary obstruction. Dictated by: Dictated on workstation # [id number]
== END ==
LOC: RAD 06:49
PROVIDERS: ATTEND Emergency Medicine
DX: M54.5 Low back pain (principal)
CPT/HCPCS: 76705

== ENCOUNTER 2019-11-28 18:43 | Emergency (ER) | payer BC ==
[~2019-11-28] VITALS: Ht 167 cm; Wt 90.9 kg
[2019-11-28] MEDS ORDERED: fentaNYL INJECTION 100 MCG/2 ML AMP ONE (18:44)
[2019-11-28] MEDS ORDERED: KETOROLAC 30 MG/ML VIAL ONE (18:45)
[2019-11-28] MEDS ORDERED: ONDANSETRON 4 MG/2 ML (SDV) Z0FRAN ONE (18:45)
--- NOTE | 2019-11-28 18:55 | ED GU-Female ---
General Stated Complaint: L FLANK PAIN Source: patient Exam Limitations: no limitations History of Present Illness Date Seen by Provider: Nov 28, 2019 Time Seen by Provider: 18:54 Initial Comments To ER with sudden onset left flank pain onset 45 minutes ago associated with nausea and vomiting. History of 5 kidney stones and this feels similar. Timing/Duration: just prior to arrival Severity/Quality: severe Location: left flank Radiation: none Activities at Onset: none Prior Genitourinary Problems: none Associated Symptoms: denies symptoms Allergies and Home Medications Allergies Coded Allergies: red dye (Unverified Allergy, Unknown, hives, 02/19/15) RED DYE #40 Home Medications Atorvastatin Calcium 20 Mg Tablet, 20 MG PO HS, (Reported) Lisinopril 10 Mg Tablet, 10 MG PO HS, (Reported) Patient Home Medication List Home Medication List Reviewed: Yes Review of Systems Review of Systems Constitutional: see HPI EENTM: see HPI Respiratory: no symptoms reported Cardiovascular: no symptoms reported Genitourinary: no symptoms reported Musculoskeletal: no symptoms reported Skin: no symptoms reported Psychiatric/Neurological: No Symptoms Reported Endocrine: No Symptoms Reported Hematologic/Lymphatic: No Symptoms Reported Past Xbynhfu-Ixvynv-Gjuiyb Hx Patient Social History 2nd Hand Smoke Exposure: No Recent Foreign Travel: No Contact w/Someone Who Travel: No Recent Hopitalizations: No Immunizations Up To Date Tetanus Booster (TDap): Less than 5yrs PED Vaccines UTD: No Date of Influenza Vaccine: Nov 09, 2017 Seasonal Allergies Seasonal Allergies: No Past Medical History Surgeries: Yes (HEART CATH) Hysterectomy Respiratory: No Currently Using CPAP: No Currently Using BIPAP: No Cardiac: Yes High Cholesterol, Hypertension Neurological: No 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 Disorders: No Female 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 Disorders: Denies [employer] History: Hysterectomy Sexually Transmitted Disease: No HIV/AIDS: No Genitourinary: Yes Kidney Stones Gastrointestinal: Yes Polyps Musculoskeletal: Yes (BULDGING DISCS) Chronic Back Pain Endocrine: No HEENT: No Cancer: No Psychosocial: No Integumentary: No Blood Disorders: No Adverse Reaction/Blood Tranf: No Family Medical History Patient reports no known family medical history. No Pertinent Family Hx Physical Exam Vital Signs Vital Signs - First Documented 11/28/19 18:47 Temp 36.5 Pulse 68 Resp 18 B/P (MAP) 109/81 (90) O2 Delivery Room Air Capillary Refill : Height, Weight, BMI Height: 5'6.00" Weight: 198lbs. 0.0oz. 89.478264ou; 32.00 BMI Method:Estimated General Appearance: WD/WN, moderate distress Neck: non-tender, full range of motion Respiratory: no respiratory distress, no accessory muscle use Extremities: normal range of motion, non-tender (was) Neurologic/Psychiatric: alert, normal mood/affect, oriented x 3 Skin: normal color, warm/dry Progress/Results/Core Measures Suspected Sepsis SIRS Temperature: Pulse: Respiratory Rate: Laboratory Tests 11/28/19 18:48: White Blood Count 6.9 Blood Pressure / Mean: Laboratory Tests 11/28/19 18:48: Creatinine 1.21, Platelet Count 254 Results/Orders Lab Results Laboratory Tests Test 11/28/19 18:48 Range/Units White Blood Count 6.9 4.3-11.0 10^3/uL Red Blood Count 4.42 3.80-5.11 10^6/uL Hemoglobin 13.7 11.5-16.0 g/dL Hematocrit 40 35-52 % Mean Corpuscular Volume 91 80-99 fL Mean Corpuscular Hemoglobin 31 25-34 pg Mean Corpuscular Hemoglobin Concent 34 32-36 g/dL Red Cell Distribution Width 12.4 10.0-14.5 % Platelet Count 254 130-400 10^3/uL Mean Platelet Volume 10.4 9.0-12.2 fL Immature Granulocyte % (Auto) 0 % Neutrophils (%) (Auto) 41 L 42-75 % Lymphocytes (%) (Auto) 46 H 12-44 % Monocytes (%) (Auto) 10 0-12 % Eosinophils (%) (Auto) 2 0-10 % Basophils (%) (Auto) 1 0-10 % Neutrophils # (Auto) 2.8 1.8-7.8 10^3/uL Lymphocytes # (Auto) 3.2 1.0-4.0 10^3/uL Monocytes # (Auto) 0.7 0.0-1.0 10^3/uL Eosinophils # (Auto) 0.1 0.0-0.3 10^3/uL Basophils # (Auto) 0.1 0.0-0.1 10^3/uL Immature Granulocyte # (Auto) 0.0 0.0-0.1 10^3/uL Sodium Level 143 135-145 MMOL/L Potassium Level 3.8 3.6-5.0 MMOL/L Chloride Level 106 98-107 MMOL/L Carbon Dioxide Level 23 21-32 MMOL/L Anion Gap 14 5-14 MMOL/L Blood Urea Nitrogen 18 7-18 MG/DL Creatinine 1.21 0.60-1.30 MG/DL Estimat Glomerular Filtration Rate 46 BUN/Creatinine Ratio 15 Glucose Level 106 H 70-105 MG/DL Calcium Level 8.9 8.5-10.1 MG/DL My Orders Orders - KELVIN NAVAS APRN Cbc With Automated Diff (11/28/19 18:52) Basic Metabolic Panel (11/28/19 18:52) Ua Culture If Indicated (11/28/19 18:52) Ed Iv/Invasive Line Start (11/28/19 18:52) Ct Abd/Pelvis Wo(Kidney Stone) (11/28/19 18:52) Abdomen/Kub 1view (11/28/19 18:52) Ns Iv 1000 Ml (Sodium Chloride 0.9%) (11/28/19 19:30) Rx-Hydrocodone/Apap 5-325 Mg (Rx-Vicodin (11/28/19 19:30) Fentanyl Injection (Sublimaze Injection (11/28/19 19:30) Medications Given in ED Current Medications Medications Dose Ordered Sig/Eusebio Route Start Time Stop Time Status Last Admin Dose Admin Fentanyl Citrate 100 mcg STK-MED ONCE .ROUTE 11/28/19 18:44 11/28/19 18:50 DC 11/28/19 18:51 50 MCG Ketorolac Tromethamine 30 mg STK-MED ONCE .ROUTE 11/28/19 18:45 11/28/19 18:50 DC 11/28/19 18:53 15 MG Ondansetron HCl 4 mg STK-MED ONCE .ROUTE 11/28/19 18:45 11/28/19 18:51 DC 11/28/19 18:52 8 MG Vital Signs/I&O 11/28/19 18:47 Temp 36.5 Pulse 68 Resp 18 B/P (MAP) 109/81 (90) O2 Delivery Room Air Capillary Refill : Departure Communication (Admissions) NAME: ERIKA POPE Irene MED REC#: [id number] PT STATUS: REG ER : 1960 PHYSICIAN: KELVIN NAVAS APRN ADMIT DATE: 11/28/19/ER Draft Date of Exam:11/28/19 CT ABD/PELVIS WO(KIDNEY STONE) PROCEDURE: CT urinary tract, rule out kidney stone. TECHNIQUE: Multiple contiguous axial images were obtained through the abdomen and pelvis without the use of intravenous contrast. Auto Exposure Controls were utilized during the CT exam to meet ALARA standards for radiation dose reduction. INDICATION: Left flank pain. History of kidney stones. COMPARISON: 02/28/2017. FINDINGS: Lung bases are clear. The heart is normal in size. There is no pericardial effusion. Liver demonstrates no focal lesion. The spleen appears normal. The pancreas is normal. The adrenal glands appear normal. Punctate calculi are seen in the right kidney with no hydronephrosis or obstructing calculi seen. The left kidney demonstrates mild hydronephrosis and hydroureter, with an obstructing calculus in the mid left ureter measuring 5 mm, located at the L4 level. There is a nonobstructing calculus in the left kidney which measures 6 mm. The bowel loops are nondistended without obstruction. The appendix is normal. No free fluid or free air is seen. No acute osseous abnormality is seen. There are degenerative changes at L5-S1. IMPRESSION: 1. Obstructing 5 mm calculus in the left mid ureter causing mild hydroureteronephrosis. 2. Additional nonobstructing calculi in the kidneys, bilaterally. Dictated on workstation # [id number] Dict: 11/28/191906 Trans: 11/28/191915 [id number] Interpreted by: AYUSH MCADAMS MD Electronically signed by: Impression Primary Impression: Left ureteral stone Disposition: HOME, SELF-CARE Condition: Stable Departure-Patient Inst. Decision time for Depature: 19:20 Referrals: YESSY BELL DO (PCP/Family) Primary Care Physician MARLEE ELLIOTT MD Patient Instructions: Kidney Stones in Adults Add. Discharge Instructions: 1. Call Dr. Elliott tomorrow to make an appointment to be seen for follow-up. Return to ER for any concerns such as intolerable pain, high fevers or other concerns. Scripts Cefuroxime Axetil (Cefuroxime) 250 Mg Tablet 250 MG PO BID, #10 TAB Prov: KELVIN NAVAS APRN 11/28/19 Ondansetron (Ondansetron Odt) 8 Mg Tab.rapdis 8 MG PO Q4H PRN for NAUSEA/VOMITING, #20 TAB Prov: KELVIN NAVAS APRN 11/28/19 Ketorolac Tromethamine (Ketorolac Tromethamine) 10 Mg Tablet 10 MG PO TID, #6 TAB Prov: KELVIN NAVAS APRN 11/28/19 Work/School Note: Work Release Form Date Seen in the Emergency Department: Nov 28, 2019 Return to Work: Nov 30, 2019 KELVIN NAVAS APRN Nov 28, 2019 18:55
[2019-11-28 19:04] LABS: BASOPHILS # (AUTO) 0.1 10^3/uL (0.0-0.1); BASOPHILS % (AUTO) 1 % (0-10); EOSINOPHILS # (AUTO) 0.1 10^3/uL (0.0-0.3); EOSINOPHILS % (AUTO) 2 % (0-10); HEMATOCRIT 40 % (35-52); HEMOGLOBIN 13.7 g/dL (11.5-16.0); LYMPHOCYTES # (AUTO) 3.2 10^3/uL (1.0-4.0); LYMPHOCYTES % (AUTO) 46 % (12-44); MEAN CORPUSCULAR HEMOGLOBIN 31 pg (25-34); MEAN CORPUSCULAR HGB CONC 34 g/dL (32-36); MEAN CORPUSCULAR VOLUME 91 fL (80-99); MEAN PLATELET VOLUME 10.4 fL (9.0-12.2); MONOCYTES # (AUTO) 0.7 10^3/uL (0.0-1.0); MONOCYTES % (AUTO) 10 % (0-12); NEUTROPHILS # (AUTO) 2.8 10^3/uL (1.8-7.8); NEUTROPHILS % (AUTO) 41 % (42-75); PLATELET COUNT 254 10^3/uL (130-400); WHITE BLOOD COUNT 6.9 10^3/uL (4.3-11.0)
--- NOTE | 2019-11-28 19:15 | Diagnostic Imaging Report ---
HISTORY: Severe left-sided flank pain with nausea and vomiting. History of kidney stones. COMPARISON: 11/28/2019. TECHNIQUE: Frontal view of the abdomen. FINDINGS: The calculus seen in the concurrent CT of the abdomen is again seen at the L4 level. The nonobstructing calculus in the superior left kidney is again seen. No distended loops of bowel are seen. There is a large collection of free air. No other calculi are identified. IMPRESSION: The obstructing calculus in the left ureter seen on the prior CT is again seen radiographically at the L4 level. Dictated by: Dictated on workstation # [id number]
[2019-11-28 19:16] LABS: CALCIUM 8.9 MG/DL (8.5-10.1); CREATININE SERUM 1.21 MG/DL (0.60-1.30); POTASSIUM 3.8 MMOL/L (3.6-5.0)
--- NOTE | 2019-11-28 19:17 | Diagnostic Imaging Report ---
PROCEDURE: CT urinary tract, rule out kidney stone. TECHNIQUE: Multiple contiguous axial images were obtained through the abdomen and pelvis without the use of intravenous contrast. Auto Exposure Controls were utilized during the CT exam to meet ALARA standards for radiation dose reduction. INDICATION: Left flank pain. History of kidney stones. COMPARISON: 02/28/2017. FINDINGS: Lung bases are clear. The heart is normal in size. There is no pericardial effusion. Liver demonstrates no focal lesion. The spleen appears normal. The pancreas is normal. The adrenal glands appear normal. Punctate calculi are seen in the right kidney with no hydronephrosis or obstructing calculi seen. The left kidney demonstrates mild hydronephrosis and hydroureter, with an obstructing calculus in the mid left ureter measuring 5 mm, located at the L4 level. There is a nonobstructing calculus in the left kidney which measures 6 mm. The bowel loops are nondistended without obstruction. The appendix is normal. No free fluid or free air is seen. No acute osseous abnormality is seen. There are degenerative changes at L5-S1. IMPRESSION: 1. Obstructing 5 mm calculus in the left mid ureter causing mild hydroureteronephrosis. 2. Additional nonobstructing calculi in the kidneys, bilaterally. Dictated by: Dictated on workstation # [id number]
[2019-11-28] MEDS ORDERED: KETO10TA PO (19:27)
[2019-11-28] MEDS ORDERED: ONDA8TAB13 PO (19:27)
[2019-11-28] MEDS ORDERED: ACHD5005 PO (19:27)
[2019-11-28] MEDS ORDERED: CEFU250T80 PO (19:27)
[2019-11-28] MEDS ORDERED: fentaNYL INJECTION 100 MCG/2 ML AMP IVP ONE (19:30)
[2019-11-28] MEDS ORDERED: RX-HYDROCODONE/APAP 5/325 MG #4 TAB PK PO PRN (19:30)
[2019-11-28] MEDS ORDERED: NS IV 1000 ML 1,000 ML IV SCH (19:30)
[2019-11-28 19:35] LABS: CLARITY,URINE CLOUDY; COLOR,URINE AMBER; GLUCOSE, URINE (UA) NEGATIVE (NEGATIVE); KETONES,URINE NEGATIVE (NEGATIVE); LEUKOCYTE ESTERASE ,URINE NEGATIVE (NEGATIVE); NITRITE,URINE NEGATIVE (NEGATIVE); PH,URINE 5.5 (5-9); PROTEIN,URINE 2+ (NEGATIVE)
[2019-11-28] MEDS ORDERED: HYDROmorphone 2 MG/ML VIAL (DILAUDID) IVP ONE (19:45)
[2019-11-28 19:48] LABS: BILIRUBIN,URINE NEGATIVE (NEGATIVE)
[2019-11-28 19:49] LABS: BACTERIA,URINE TRACE /HPF; RBC,URINE TNTC /HPF; WBC,URINE 0-2 /HPF; YEAST,URINE LARGE /HPF
[2019-11-28 20:23] VITALS: BP 136/77
== END 2019-11-28 20:28 | disposition home or self-care (01) ==
LOC: EDUNIT# 18:43 → ER 18:45
DX: N13.2 Hydronephrosis with renal and ureteral calculous obstruction (principal); I10 Essential (primary) hypertension; E78.00 Pure hypercholesterolemia, unspecified; Z91.041 Radiographic dye allergy status
CPT/HCPCS: 36415; 74018; 74176; 80048; 81000; 85025

== ENCOUNTER 2019-11-29 07:55 | Emergency (ER) | payer BC ==
[~2019-11-29] VITALS: Ht 160 cm; Wt 90.9 kg
[2019-11-29] MEDS ORDERED: LACTATED RINGERS 1,000 ML IV ONE (07:59)
[2019-11-29] MEDS ORDERED: ONDANSETRON 4 MG/2 ML (SDV) Z0FRAN IVP ONE (08:00)
[2019-11-29] MEDS ORDERED: KETOROLAC 30 MG/ML VIAL IVP ONE (08:00)
--- NOTE | 2019-11-29 08:07 | ED General ---
General Stated Complaint: KIDNEY STONE Source of Information: Patient Exam Limitations: No Limitations History of Present Illness Date Seen by Provider: Nov 29, 2019 Time Seen by Provider: 07:53 Initial Comments Patient presents to ER by private conveyance from home with chief complaint that she is having nausea with vomiting twice this morning. This is related to pain in her back from kidney stone. She was discovered to have a kidney stone last night in the ER. She was written for hydrocodone but she was unable to tolerate it because of the nausea. She was written for ondansetron but she was unable to collect it because of the pharmacy being closed. No fevers, diarrhea, cough, shortness of breath. Allergies and Home Medications Allergies Coded Allergies: red dye (Unverified Allergy, Unknown, hives, 02/19/15) RED DYE #40 Home Medications Atorvastatin Calcium 20 Mg Tablet, 20 MG PO HS, (Reported) Cefuroxime Axetil 250 Mg Tablet, 250 MG PO BID Prescribed by: KELVIN NAVAS on 11/28/191926 Hydrocodone/Acetaminophen 1 Each Tablet, 1-2 EACH PO Q6H PRN for PAIN-SEVERE (8- 10) Prescribed by: KELVIN NAVAS on 11/28/191926 Ketorolac Tromethamine 10 Mg Tablet, 10 MG PO TID Prescribed by: KELVIN NAVAS on 11/28/191926 Lisinopril 10 Mg Tablet, 10 MG PO HS, (Reported) Ondansetron 8 Mg Tab.rapdis, 8 MG PO Q4H PRN for NAUSEA/VOMITING Prescribed by: KELVIN NAVAS on 11/28/191926 Patient Home Medication List Home Medication List Reviewed: Yes Review of Systems Review of Systems Constitutional: No chills, No fever Respiratory: No cough, No short of breath Musculoskeletal: see HPI, back pain Skin: No pruritus, No rash All Other Systems Reviewed Negative Unless Noted: Yes Past Menxhkm-Apxzcc-Rvzxns Hx Patient Social History Alcohol Use: Denies Use Recreational Drug Use: No Smoking Status: Never a Smoker 2nd Hand Smoke Exposure: No Recent Foreign Travel: No Contact w/Someone Who Travel: No Recent Hopitalizations: No Immunizations Up To Date Tetanus Booster (TDap): Less than 5yrs PED Vaccines UTD: No Date of Influenza Vaccine: Nov 09, 2017 Seasonal Allergies Seasonal Allergies: No Past Medical History Surgeries: Yes (HEART CATH) Hysterectomy Respiratory: No Currently Using CPAP: No Currently Using BIPAP: No Cardiac: Yes High Cholesterol, Hypertension Neurological: No 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 Disorders: No 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 No Pertinent Family Hx Physical Exam Vital Signs Vital Signs - First Documented 11/29/19 07:55 Temp 36.9 Pulse 98 Resp 18 B/P (MAP) 187/102 (130) Pulse Ox 99 O2 Delivery Room Air Capillary Refill : Height, Weight, BMI Height: 5'6.00" Weight: 198lbs. 0.0oz. 89.130659be; 32.00 BMI Method:Estimated General Appearance: Anxious, Mild Distress HEENT: Pharynx Normal, Moist Mucous Membranes Respiratory: No Accessory Muscle Use, No Respiratory Distress Cardiovascular: Regular Rate, Rhythm, No Edema Progress/Results/Core Measures Suspected Sepsis SIRS Temperature: Pulse: Respiratory Rate: Blood Pressure / Mean: Results/Orders My Orders Orders - LATASHA ARVIZU Ketorolac Injection (Toradol Injection) (11/29/19 08:00) Ondansetron Injection (Zofran Injectio (11/29/19 08:00) Ed Iv/Invasive Line Start (11/29/19 07:59) Lactated Ringers (Lr 1000 Ml Iv Solution (11/29/19 07:59) Hydrocodone/Apap 5/325 Tablet (Lortab 5 (11/29/19 08:45) Medications Given in ED Current Medications Medications Dose Ordered Sig/Eusebio Route Start Time Stop Time Status Last Admin Dose Admin Ketorolac Tromethamine 30 mg ONCE ONCE IVP 11/29/19 08:00 11/29/19 08:02 DC 11/29/19 08:06 30 MG Lactated Ringer's 1,000 ml @ 0 mls/hr Q0M ONCE IV 11/29/19 07:59 11/29/19 08:02 DC 11/29/19 08:08 1,000 MLS/HR Ondansetron HCl 8 mg ONCE ONCE IVP 11/29/19 08:00 11/29/19 08:02 DC 11/29/19 08:07 8 MG Vital Signs/I&O 11/29/19 07:55 Temp 36.9 Pulse 98 Resp 18 B/P (MAP) 187/102 (130) Pulse Ox 99 O2 Delivery Room Air Capillary Refill : Progress Note #1: Time: 08:13 Progress Note Patient is significant only uncomfortable. We did offer oral medications versus IV and she says she is having a significant amount of pain so we are going to put an IV in her give her a liter of lactated Ringer's, 30 mg of Toradol and 8 mg of ondansetron. If we can get her symptoms under control she can go to the pharmacy and get her medications and follow-up with urology outpatient per her previous plan. Progress Note #2: Time: 08:45 Progress Note The patient's nausea is gone. Her pain is significantly improved however she says she still having moderate pain and would appreciate something else so were going to send in a tablet of hydrocodone 5 x 3 25. She has about 400 cc of IV fluids to go and then we'll let her go home. Departure Impression Primary Impression: Left ureteral stone Disposition: 01 HOME, SELF-CARE Condition: Stable Departure-Patient Inst. Decision time for Depature: 08:45 Referrals: YESSY BELL DO (PCP/Family) Primary Care Physician Patient Instructions: Kidney Stones (DC) Add. Discharge Instructions: Use the hydrocodone and ondansetron as prescribed. Follow-up with the urologist. LATASHA ARVIZU Nov 29, 2019 08:07
--- NOTE | 2019-11-29 08:24 | NUR ---
TO ROOM FLUIDS INFUSING PAIN AND NAUSEA IMPROVED
[2019-11-29] MEDS ORDERED: HYDROcodone/APAP 5 MG/325 MG (LORTAB) TAB PO ONE (08:45)
[2019-11-29 09:07] VITALS: BP 176/107
== END 2019-11-29 09:03 | disposition home or self-care (01) ==
LOC: EDUNIT# 07:55 → ER 07:57
DX: N20.1 Calculus of ureter (principal); I10 Essential (primary) hypertension; E78.00 Pure hypercholesterolemia, unspecified; G89.29 Other chronic pain; M54.9 Dorsalgia, unspecified; Z79.891 Long term (current) use of opiate analgesic; Z91.041 Radiographic dye allergy status; Z95.9 Presence of cardiac and vascular implant and graft, unspecified

== ENCOUNTER → 2019-11-29 | Outpatient (CLI) | payer BC ==
[~2019-11-29] MED LIST changes: +CEFU250T80 PO
--- NOTE | 2019-11-29 13:52 | Diagnostic Imaging Report ---
REASON FOR EXAM: Followup left ureteral stone. COMPARISON: 11/28/2019. TECHNIQUE: frontal supine view of the abdomen FINDINGS: Previously visualized focus of calcification in the mid left ureter now appears to have migrated into the pelvis likely at the left UVJ. Stable small phleboliths are noted in the pelvis. No other calcifications are visualized along the course of the ureter to suggest additional obstructing calculi. Included loops of bowel are nondistended. IMPRESSION: Migration of the previously visualized urolithiasis, now within the left UVJ. Dictated by: Dictated on workstation # [id number]
== END ==
LOC: RAD 12:29
PROVIDERS: ATTEND Urology
DX: N20.2 Calculus of kidney with calculus of ureter (principal); Z20.828 Contact with and (suspected) exposure to other viral communicable diseases
CPT/HCPCS: 74018

== ENCOUNTER 2019-12-04 05:36 | Outpatient (CLI) | payer BC ==
[~2019-12-04] VITALS: Ht 167.7 cm; Wt 90.9 kg
[2019-12-05] MEDS ORDERED: NITR-65 PO (10:00)
[2019-12-05] MEDS ORDERED: PHEN-640 PO (10:00)
== END 2019-12-04 12:42 ==
LOC: PREOP 05:36
PROVIDERS: ATTEND Urology
DX: Z01.818 Encounter for other preprocedural examination (principal); Z01.812 Encounter for preprocedural laboratory examination; N20.2 Calculus of kidney with calculus of ureter; Z20.828 Contact with and (suspected) exposure to other viral communicable diseases
CPT/HCPCS: 87635

== ENCOUNTER 2019-12-05 07:04 | Day surgery (SDC) | payer BC ==
[2019-12-05] VITALS (9 sets, daily range): BP systolic 135–159; BP diastolic 83–103
[~2019-12-05] VITALS: Ht 167.7 cm; Wt 90.9 kg
[2019-12-05] MEDS ORDERED: CATHETER FLUSH 10 ML SYR IV PRN (07:30)
[2019-12-05] MEDS ORDERED: cefTRIAXone FOR IV USE 1,000 MG in WATER (STERILE) FOR INJECTION 10 ML IV ONE (07:30)
--- NOTE | 2019-12-05 08:00 | Diagnostic Imaging Report ---
INDICATION: Preop lithotripsy. Comparison with 11/29/2019. FINDINGS: Calcification again noted in the pelvis unchanged. Also small calcification overlying the upper pole left kidney remains present. IMPRESSION: Left renal calculus as well as probable distal left ureteral calculus are again noted unchanged. Dictated by: Dictated on workstation # [id number]
[2019-12-05] MEDS: LACTATED RINGERS 1,000 ML IV PRN ×2 (08:02→10:00)
--- NOTE | 2019-12-05 08:39 | Progress Note-Pre Operative ---
Pre-Operative Progress Note H&P Reviewed The H&P was reviewed, patient examined and no changes noted. Date Seen by Provider: Dec 05, 2019 Time Seen by Provider: 08:39 Date H&P Reviewed: Dec 05, 2019 Time H&P Reviewed: 08:39 Pre-Operative Diagnosis: LT DISTAL URETERAL STONE MARLEE CHASE MD Dec 05, 2019 08:39
--- NOTE | 2019-12-05 09:02 | Progress Note-Post Operative ---
Post-Operative Progess Note Surgeon (s)/Patient Access Director (s) Surgeon MARLEE CHASE MD Patient Access Director: NONE Pre-Operative Diagnosis LT DISTAL URETERAL STONE Post-Operative Diagnosis SAME Procedure & Operative Findings Date of Procedure 12/05/19 Procedure Performed/Findings LT URETEROSCOPY WITH STONE BASKET Anesthesia Type GENERAL Estimated Blood Loss Estimated blood loss (mL): NONE Specimens/Packing Specimens Removed NONE Packing: NONE MARLEE CHASE MD Dec 05, 2019 09:02
--- NOTE | 2019-12-05 09:03 | Discharge Inst-Urology ---
Discharge Inst-Urology Reconcile Patient Problems Problems Reviewed?: Yes Final Diagnosis LT DISTAL URETERAL STONE Patient Instructions/Follow Up Plan/Assessment/Instructions Please make appointment to been seen in office in 2 weeks. No KUB'S needed Stone for analysis post seen by patient, friend has it Increase oral fluids for 48 hours and then as needed. Diet and Activity as tolerated. If questions or concerns contact your physician Or seek help at emergency department. MARLEE CHASE MD Dec 05, 2019 09:03
[2019-12-05] MEDS ORDERED: fentaNYL INJECTION 100 MCG/2 ML AMP ONE (09:05)
[2019-12-05] MEDS ORDERED: MIDAZOLAM 2 MG/2 ML (VERSED) VIAL ONE (09:05)
[2019-12-05] MEDS ORDERED: GLYCOPYRROLATE 0.2 MG/ML (ROBINUL) 2 ML VIAL ONE (09:35)
[2019-12-05] MEDS ORDERED: ROCURONIUM 10 MG/ML 5 ML SYRINGE IV ONE (09:35)
[2019-12-05] MEDS ORDERED: ONDANSETRON 4 MG/2 ML (SDV) Z0FRAN ONE (09:35)
[2019-12-05] MEDS ORDERED: NEOSTIGMINE 3 MG/3 ML VIAL ONE (09:35)
[2019-12-05] MEDS ORDERED: SEVOFLURANE (ULTANE) 15 ML INHAL SOLN ONE (09:35)
[2019-12-05] MEDS ORDERED: proPOfol 200 MG/20 ML (DIPRIVAN) VIAL IV ONE (09:35)
[2019-12-05] MEDS ORDERED: LIDOCAINE PF 2% 5 ML (XYLOCAINE) VIAL ONE (09:35)
[2019-12-05] MEDS ORDERED: NITR-65 PO (10:00)
[2019-12-05] MEDS ORDERED: morphine INJ 10 MG/ML 1ML (SYR OR VIAL) IVP ONE (10:00)
[2019-12-05] MEDS ORDERED: PHEN-640 PO (10:00)
[2019-12-05] MEDS ORDERED: ONDANSETRON 4 MG/2 ML (SDV) Z0FRAN IVP PRN (10:00)
--- NOTE | 2019-12-05 10:30 | NUR ---
TO AMB SURG FROM PAR PER CART. ALERT, DENIES COMPLAINTS. PO FLUIDS PROVIDED.
[2019-12-05] MEDS ORDERED: PHENAZOPYRIDINE 100 MG (PYRIDIUM) TABLET ONE (11:09)
[2019-12-05] MEDS ORDERED: PHENAZOPYRIDINE 100 MG (PYRIDIUM) TABLET PO ONE (11:15)
--- NOTE | 2019-12-05 11:22 | NUR ---
HAS BEEN ALERT, TAKING PO FLUIDS WITHOUT PROBLEM. DENIES COMPLAINTS. UP WITH ASSIST TO BR, VOIDED, GAIT STEADY. PYRIDIUM 200 MG GIVEN PO FOR PAIN CONTROL, AND PRESCRIPTIONS FOR PYRIDIUM AND MACROBID CALLED TO [facility] PER PT REQUEST. STATES SHE IS READY FOR DISMISSAL.
--- NOTE | 2019-12-05 13:18 | OPERATIVE REPORT ---
DATE OF SERVICE: 12/05/2019 PREOPERATIVE DIAGNOSIS: Left distal ureteral stone. POSTOPERATIVE DIAGNOSES: 1. Left distal ureteral stone. 2. Vaginal prolapse. OPERATION PERFORMED: Cystoscopy with left ureteroscopy and stone basket. SURGEON: Armen Chase MD ANESTHESIA: General. COMPLICATIONS: None. DESCRIPTION OF PROCEDURE: Under satisfactory general anesthesia, the patient in lithotomy position, genitalia were prepped and draped in the usual sterile fashion. Noted a vaginal prolapse. Cystoscope was introduced under vision. The bladder examination was normal except for sluggish efflux on the left side. No foreign body stone visualized. Using the foroblique lens, I dilated the left ureteral orifice intramural portion to the level of the stone, which I felt disimpacted. I passed a 6.9 Nepalese semi-rigid ureteroscope. The stone was seen floating, so I elected to basket it, so I passed a 3-Nepalese Ny basket, engaged the stone and extracted it completely. I went back with ureteroscope past the level of the stone to confirm the integrity of the ureter and no further calcifications. I removed the ureteroscope, inserted the cystoscope sheath to empty the bladder. The patient tolerated the procedure and anesthesia well and was sent to recovery room in stable condition. PLAN: We will send the stone for analysis and later at the office, we will do a stone risk profile to prevent formation of stones again. Job ID: [id number] DocumentID: [id number] Dictated Date: 12/05/2019 10:02:54 Box Sealing Machine Catcher Date: 12/05/2019 13:18:13 Dictated By: ARMEN CHASE MD
--- NOTE | 2019-12-06 07:23 | Anesthesia-General Post-Op ---
General Patient Condition Mental Status/LOC: Same as Preop Cardiovascular: Satisfactory Nausea/Vomiting: Absent Respiratory: Satisfactory Pain: Controlled Complications: Absent Post Op Complications Complications None Follow Up Care/Instructions Patient Instructions None needed. Anesthesia/Patient Condition Patient Condition Patient was seen yesterday after the procedure and she was doing well, no complaints, stable vital signs, no apparent adverse anesthesia problems. BARBY BAKER DO Dec 06, 2019 07:23
== END 2019-12-05 11:40 | disposition home or self-care (01) ==
LOC: SDC 07:04
PROVIDERS: ATTEND Urology
DX: N20.2 Calculus of kidney with calculus of ureter (principal); N81.10 Cystocele, unspecified; I10 Essential (primary) hypertension; E78.5 Hyperlipidemia, unspecified; M19.91 Primary osteoarthritis, unspecified site; J30.9 Allergic rhinitis, unspecified; Z79.899 Other long term (current) drug therapy; Z11.2 Encounter for screening for other bacterial diseases; Z86.010 Personal history of colon polyps
CPT/HCPCS: 74018; 76000; 87081; 88300

== ENCOUNTER 2019-12-25 08:54 | Outpatient (RCR) | payer BC ==
[~2019-12-25 08:54] MED LIST changes: -MONT10TA26 PO; +MONT10TA97 PO
== END 2020-03-23 | disposition home or self-care (01) ==
LOC: LAB 08:54
PROVIDERS: ATTEND Urology
DX: N20.0 Calculus of kidney (principal)
CPT/HCPCS: 36415; 82140; 82340; 82507; 82570; 83735; 83945; 83986; 84105; 84133; 84300; 84392; 84560

== ENCOUNTER → 2020-02-12 | Outpatient (CLI) | payer BC ==
--- NOTE | 2020-02-12 10:51 | Diagnostic Imaging Report ---
Digital mammogram INDICATION: Bilateral screening This study was compared to the prior exams of 08/25/2018, 08/15/2017 and 10/20/2015. At this time there are no current complaints. The current study was also evaluated with a Computer Aided Detection (CAD) system. FINDINGS: The fibroglandular tissue in both breasts is dense. This does limit the sensitivity of this exam. Overall, there does not appear to have been any significant change when compared to the prior study. No primary or secondary sign of malignancy is noted. IMPRESSION: There is no radiographic evidence for malignancy. ACR category 1 ACR BI-RADS Category 1: Negative. Result letter will be mailed to the patient. Note: At least 10% of breast cancer is not imaged by mammography. Dictated by: Dictated on workstation # [id number]
== END ==
LOC: RAD 07:30
PROVIDERS: ATTEND Family Medicine
DX: Z12.31 Encounter for screening mammogram for malignant neoplasm of breast (principal)
CPT/HCPCS: 77063; 77067

== ENCOUNTER → 2020-03-27 | Outpatient (CLI) | payer BC ==
--- NOTE | 2020-03-27 08:59 | Diagnostic Imaging Report ---
PROCEDURE: US Thyroid. TECHNIQUE: Multiple real-time grayscale images were obtained of the thyroid in various projections. INDICATION: Followup thyroid nodule COMPARISON: 09/29/2011 FINDINGS: The right thyroid lobe measures 4.6 x 1.7 x 1.7 cm. Background echotexture is homogenous and normal. Vascularity appears normal. There is a questionable isoechoic ill-defined solid nodule in the superior right thyroid laterally, measuring up to 4 mm in size. There are no calcifications. The isthmus measures 3 mm and appears normal. Left lower lobe measures 5.1 x 2.0 x 1.8 cm. Echotexture and vascularity are normal. There is an isoechoic solid nodule which is ill-defined but appears rounded and has no calcifications. No other nodules are seen. IMPRESSION: 1. Small bilateral isoechoic nodules. No further followup is indicated by TI-RADS criteria. Dictated by: Dictated on workstation # [id number]
== END ==
LOC: RAD 07:00
PROVIDERS: ATTEND Family Medicine
DX: E04.2 Nontoxic multinodular goiter (principal)
CPT/HCPCS: 76536

== ENCOUNTER → 2020-08-07 | Outpatient (CLI) | payer BC ==
[~2020-08-07] MED LIST changes: -CIPR500T4 PO; +CIPR500T5 PO; -DICL100T83 PO; -LISI10TA2 PO; +LISI10TA25 PO; +MONT10TA32 PO; -MONT10TA97 PO; +NF-DICLOTA PO; -OXYC-471 PO; +OXYC1TAB11 PO
[2020-08-07 17:21] LABS: BASOPHILS # (AUTO) 0.1 10^3/uL (0.0-0.1); BASOPHILS % (AUTO) 1 % (0-10); EOSINOPHILS # (AUTO) 0.2 10^3/uL (0.0-0.3); EOSINOPHILS % (AUTO) 3 % (0-10); HEMATOCRIT 42 % (35-52); HEMOGLOBIN 14.2 g/dL (11.5-16.0); LYMPHOCYTES # (AUTO) 2.3 10^3/uL (1.0-4.0); LYMPHOCYTES % (AUTO) 35 % (12-44); MEAN CORPUSCULAR HEMOGLOBIN 31 pg (25-34); MEAN CORPUSCULAR HGB CONC 34 g/dL (32-36); MEAN CORPUSCULAR VOLUME 91 fL (80-99); MEAN PLATELET VOLUME 10.2 fL (9.0-12.2); MONOCYTES # (AUTO) 0.5 10^3/uL (0.0-1.0); MONOCYTES % (AUTO) 8 % (0-12); NEUTROPHILS # (AUTO) 3.5 10^3/uL (1.8-7.8); NEUTROPHILS % (AUTO) 53 % (42-75); PLATELET COUNT 218 10^3/uL (130-400); WHITE BLOOD COUNT 6.6 10^3/uL (4.3-11.0)
[2020-08-07 17:33] LABS: ALBUMIN 4.4 GM/DL (3.2-4.5)
[2020-08-07 17:34] LABS: POTASSIUM 4.1 MMOL/L (3.6-5.0)
[2020-08-07 17:35] LABS: CALCIUM 9.2 MG/DL (8.5-10.1)
[2020-08-07 17:36] LABS: TOTAL PROTEIN 7.6 GM/DL (6.4-8.2)
[2020-08-07 17:38] LABS: BILIRUBIN,TOTAL 0.6 MG/DL (0.1-1.0)
[2020-08-07 17:40] LABS: CREATININE SERUM 1.06 MG/DL (0.60-1.30)
[2020-08-07 17:44] LABS: ERYTHROCYTE SEDIMENTATION RATE 12 MM/HR (0-30)
== END ==
LOC: LAB 17:06
PROVIDERS: ATTEND Family Medicine
DX: M25.562 Pain in left knee (principal); M25.462 Effusion, left knee
CPT/HCPCS: 36415; 80053; 85025; 85652; 86141

== ENCOUNTER → 2021-05-21 | Outpatient (CLI) | payer BC ==
[~2021-05-21] MED LIST changes: +MONT-40 PO; -MONT10TA32 PO
--- NOTE | 2021-05-21 10:04 | Diagnostic Imaging Report ---
INDICATION: Routine screening. COMPARISON: 02/12/2020 and 08/25/2018. TECHNIQUE: 2D and 3D bilateral screening mammography was performed with CAD. FINDINGS: Both breasts are heterogeneously dense, limiting the sensitivity of mammography. There are benign calcifications present. No mass or malignant-appearing microcalcifications are seen. The axillae are unremarkable. IMPRESSION: No mammographic features suspicious for malignancy are identified. ACR BI-RADS Category 2: Benign findings. Result letter will be mailed to the patient. Note: At least 10% of breast cancer is not imaged by mammography. Dictated by: Dictated on workstation # [id number]
== END ==
LOC: RAD 07:22
PROVIDERS: ATTEND Family Medicine
DX: Z12.31 Encounter for screening mammogram for malignant neoplasm of breast (principal)
CPT/HCPCS: 77063; 77067

== ENCOUNTER → 2022-07-13 | Outpatient (CLI) | payer BC ==
--- NOTE | 2022-07-13 09:14 | Diagnostic Imaging Report ---
INDICATION: Routine screening. COMPARISON: 05/21/2021 and 02/12/2020. TECHNIQUE: 2D and 3D bilateral screening mammography was performed with CAD. FINDINGS: Both breasts are heterogeneously dense, limiting the sensitivity of mammography. The overall parenchymal pattern is stable. No mass or malignant-appearing microcalcifications are seen. Occasional benign calcifications are noted. The axillae are unremarkable. IMPRESSION: No mammographic features suspicious for malignancy are identified. ACR BI-RADS Category 2: Benign findings. Result letter will be mailed to the patient. Note: At least 10% of breast cancer is not imaged by mammography. Dictated by: Dictated on workstation # [id number]
== END ==
LOC: RAD 07:24
PROVIDERS: ATTEND Family Medicine
DX: Z12.31 Encounter for screening mammogram for malignant neoplasm of breast (principal)
CPT/HCPCS: 77063; 77067